=== PATIENT | female | born 1940 | race Caucasian/White ===

== ENCOUNTER 2016-11-18 12:33 | Observation (INO) ==
[2016-11-18] MEDS ORDERED: Aspirin 81 MG TAB.CHEW PO ONE (13:08)
--- NOTE | 2016-11-18 13:12 | Emergency Department Note ---
Disposition Clinical Impression: Chest pain Qualifiers: Chest pain type: unspecified Qualified Code(s): R07.9 - Chest pain, unspecified Gout Qualifiers: Gout site: unspecified site Gout etiology: unspecified cause Chronicity: acute Qualified Code(s): M10.9 - Gout, unspecified Disposition: Admitted As Inpatient Condition: Fair Referrals: Marcus Tompkins Jr, MD [Primary Care Provider] - Forms: ED Satisfaction Letter Time of Disposition: 14:43 General Adult HPI - General Chief complaint: ED Extremity Problem,Nontraumatic Stated complaint: knee pain(diag gout last week) Time Seen by Provider: 11/18/16 12:58 Source: patient Mode of arrival: wheelchair Limitations: no limitations Nursing Notes Reviewed: Yes Vital Signs Reviewed: Yes - History of Present Illness HPI Narrative: 75-year-old female who states she developed some ankle and foot pain on the right side last week was seen by her family doctor diagnosed with gout with elevated uric acid. The patient states she was placed on prednisone and allopurinol. States she's had increasing knee pain now and states that when she Carmen the bathroom she develops chest pain. 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 Radiation: non-radiation Pain Severity: moderate Pain Scale: 10 Quality: aching Consistency: constant Improves with: rest Worsens with: other (Exertion) - Related Data Home Medications Medication Instructions Recorded Confirmed Aspirin Enteric Coated [Aspirin EC] 81 mg PO DAILY 09/23/14 10/08/16 Carvedilol [Coreg] 6.25 mg PO BIDWM #0 09/23/14 10/08/16 Cholecalciferol (Vitamin D3) 50,000 unit PO QWEEK #0 09/23/14 10/08/16 [Vitamin D] Clopidogrel [Plavix] 75 mg PO DAILY 09/23/14 10/08/16 Cyanocobalamin (Vitamin B-12) 500 mcg PO DAILY #0 09/23/14 10/08/16 [Vitamin B-12] Furosemide [Lasix] 40 mg PO DAILY #0 09/23/14 10/08/16 Simvastatin [Zocor] 40 mg PO HS #0 09/23/14 10/08/16 Nitroglycerin [Nitrostat] 0.4 mg SL Q5-6MIN PRN 11/27/14 10/08/16 Insulin Aspart Prot/Insuln Asp 40 unit SQ BID 07/09/16 10/08/16 [Novolog Mix 70-30 Vial] Furosemide [Lasix] 20 mg PO HS 10/08/16 10/08/16 GlipiZIDE [Glipizide Xl] 5 mg PO DAILY 10/08/16 10/08/16 Allergies Allergy/AdvReac Type Severity Reaction Status Date / Time No Known Allergies Allergy Verified 09/23/14 19:55 All systems ED: reviewed and negative except as stated. Constitutional: Denies: fever, chills, weakness, weight change Eyes: Denies: eye pain, eye discharge, vision change ENT ED: Denies: ear pain, throat pain, dental pain, hearing loss, epistaxis, congestion, dysphagia Cardiovascular: Reports: chest pain. Denies: palpitations, dyspnea on exertion , edema, syncope Respiratory: Denies: cough, dyspnea, wheezes, hemoptysis, stridor Gastrointestinal: Denies: abdominal pain, nausea, vomiting, diarrhea, constipation, hematemesis, melena, hematochezia Genitourinary: Denies: dysuria, frequency, hematuria, discharge Musculoskeletal: Denies: back pain, neck pain, arthralgia, myalgia Integumentary: Denies: rash, abrasion, lesions Neurological: Denies: headache, weakness, numbness, paresthesias, confusion, abnormal gait, vertigo Psychiatric: Denies: anxiety, depression, suicidal thoughts, homicidal thoughts , auditory hallucinations, visual hallucinations Endocrine: Denies: fatigue Hematological/Lymphatic: Denies: easy bleeding, easy bruising Allergic/Immunologic: Denies: facial swelling, urticaria Past Medical History - Past Medical History Medical history: Reports: arthritis, CHF, coronary artery disease, diabetes, GERD, hyperlipidemia, hypertension, renal disease, other Surgical history: Reports: angioplasty/stent, appendectomy, cataract, hysterectomy, pacemaker/AICD, other, AICD, pacemaker Psychiatric history: Reports: no psych history - Social History Smoking Status: Never smoker Smokeless Tobacco Status: No Alcohol use: Reports: none Drug use: Reports: none Physical Exam - General Limitations: no limitations General appearance: alert, in no apparent distress - Head Head exam: atraumatic, normocephalic, normal inspection - Eye Eye exam: Present: normal appearance, PERRL, EOMI - ENT ENT exam: normal exam, normal oropharynx, mucous membranes moist - Neck Neck exam: Present: normal inspection, full ROM, trachea midline - Chest Chest inspection: Present: normal inspection, symmetric chest wall rise - Respiratory Respiratory exam: Present: normal lung sounds bilaterally - Cardiovascular Cardiovascular exam: Present: regular rate, normal rhythm, normal heart sounds - Abdominal Exam Abdominal exam: Present: soft, Non-Tender. Absent: tenderness, distention, guarding, rebound, rigidity - Expanded Lower Extremity Exam Knee exam: Present: tenderness. Absent: erythema Neurovascular/Tendon exam: Absent: motor deficit, sensory deficit, tendon deficit Gait: observed and normal - Back Exam Back exam: Present: normal inspection, full ROM. Absent: tenderness - Neurological Exam Neurological exam: Present: alert, oriented X3 - Psychiatric Psychiatric exam: Present: normal affect, normal mood - Skin Skin exam: Present: warm, dry, intact, normal color Course - Reevaluation(s) Reevaluation #1: 75-year-old who developed gout in her right ankle was treated now has right knee pain. Due to the pain patient exerts herself much more when ambulating and she develops chest pain with that. Patient will be admitted for the chest pain and also consultation with orthopedics. Time: 14:40 - Consultations Consultation #1: Discussed with Cirilo Dykes, admit. Time: 14:40 Vital Signs Temperature 97.3 F L 11/18/16 12:52 Pulse Rate 67 11/18/16 12:52 Respiratory Rate 20 11/18/16 12:52 Blood Pressure 105/64 11/18/16 12:52 O2 Sat by Pulse Oximetry 96 11/18/16 12:52 Temperature 97.3 F L 11/18/16 12:52 Pulse Rate 64 11/18/16 14:17 Respiratory Rate 14 11/18/16 14:17 Blood Pressure 112/55 11/18/16 14:17 O2 Sat by Pulse Oximetry 97 11/18/16 14:17 Oxygen Delivery Oxygen Delivery Room Air Medical Decision Making - Lab Data Result diagrams: 11/18/16 13:33 11/18/16 13:33 Lab Results 11/18/16 11/18/16 11/18/16 Range/Units 13:33 13:33 13:33 WBC 6.1 (4.3-11.1) K/mcL RBC 3.10 L (3.82-4.97) M/mcL Hgb 9.5 L (11.5-15.4) g/dL Hct 29.3 L (35.3-44.9) % MCV 94.5 (83.0-100.0) fL MCH 30.6 (28.0-33.3) pg MCHC 32.4 (31.6-35.5) g/dL RDW 14.6 H (11.5-14.5) % Plt Count 182 (140-400) K/mcL MPV 12.0 (9.4-12.4) fL Immature Gran % 0.3 (0-4) % Seg Neutrophils % 65.8 % Lymphocytes % 24.6 % Monocytes % 6.7 % Eosinophils % 2.3 % Basophils % 0.3 % Neutrophils # 4.0 (1.6-8.9) K/mcL Lymphocytes # 1.5 (0.6-4.6) K/mcL Monocytes # 0.4 (0.0-1.3) K/mcL Eosinophils # 0.1 (0.0-0.6) K/mcL Basophils # 0.0 (0.0-0.2) K/mcL PT 11.4 (9.4-12.1) Seconds INR 1.1 APTT 26.6 (26.0-36.0) Seconds Sodium 139 (136-145) mEq/L Potassium 3.8 (3.5-4.5) mEq/L Chloride 100 (98-109) mEq/L Carbon Dioxide 30 H (19-29) mEq/L BUN 37 H (7-20) mg/dL Creatinine 2.49 H (0.57-1.11) mg/dL Est GFR ( Amer) 23 L (> 60) Est GFR (Non-Af Amer) 19 L (> 60) BUN/Creatinine Ratio 15 (6-26) Glucose 68 L (70-99) mg/dL Calculated Osmolality 295 (280-300) Calcium 9.6 (8.6-10.8) mg/dL Troponin I (0-0.03) ng/mL 11/18/16 Range/Units 13:33 WBC (4.3-11.1) K/mcL RBC (3.82-4.97) M/mcL Hgb (11.5-15.4) g/dL Hct (35.3-44.9) % MCV (83.0-100.0) fL MCH (28.0-33.3) pg MCHC (31.6-35.5) g/dL RDW (11.5-14.5) % Plt Count (140-400) K/mcL MPV (9.4-12.4) fL Immature Gran % (0-4) % Seg Neutrophils % % Lymphocytes % % Monocytes % % Eosinophils % % Basophils % % Neutrophils # (1.6-8.9) K/mcL Lymphocytes # (0.6-4.6) K/mcL Monocytes # (0.0-1.3) K/mcL Eosinophils # (0.0-0.6) K/mcL Basophils # (0.0-0.2) K/mcL PT (9.4-12.1) Seconds INR APTT (26.0-36.0) Seconds Sodium (136-145) mEq/L Potassium (3.5-4.5) mEq/L Chloride (98-109) mEq/L Carbon Dioxide (19-29) mEq/L BUN (7-20) mg/dL Creatinine (0.57-1.11) mg/dL Est GFR ( Amer) (> 60) Est GFR (Non-Af Amer) (> 60) BUN/Creatinine Ratio (6-26) Glucose (70-99) mg/dL Calculated Osmolality (280-300) Calcium (8.6-10.8) mg/dL Troponin I 0.00 (0-0.03) ng/mL - Radiology Data Radiology results reviewed: Yes I reviewed the patient's radiology results. - EKG Data EKG #1 EKG attestation: Yes I reviewed and interpreted this EKG. EKG shows normal: sinus rhythm Rate: normal Rhythm: NSR Interpretation: no acute changes
[2016-11-18 13:50] LABS: Basophils % 0.3 %; Eosinophils # 0.1 K/mcL (0.0-0.6); Eosinophils % 2.3 %; Hematocrit 29.3 % (35.3-44.9); Hemoglobin 9.5 g/dL (11.5-15.4); Immature Granulocytes % 0.3 % (0-4); Lymphocytes # 1.5 K/mcL (0.6-4.6); Lymphocytes % 24.6 %; Mean Corpuscular HGB Conc 32.4 g/dL (31.6-35.5); Mean Corpuscular Hemoglobin 30.6 pg (28.0-33.3); Mean Corpuscular Volume 94.5 fL (83.0-100.0); Monocytes # 0.4 K/mcL (0.0-1.3); Monocytes % 6.7 %; Platelet Count 182 K/mcL (140-400); Red Cell Distribution Width 14.6 % (11.5-14.5); Segmented Neutrophils % 65.8 %
[2016-11-18 13:56] LABS: INR 1.1; Prothrombin Time 11.4 Seconds (9.4-12.1)
[2016-11-18 13:59] LABS: Activated Partial Thrombo Time 26.6 Seconds (26.0-36.0)
[2016-11-18 14:09] LABS: Calcium 9.6 mg/dL (8.6-10.8); Potassium 3.8 mEq/L (3.5-4.5)
[2016-11-18] MEDS ORDERED: Naloxone 0.4 MG/ML INJ IVP PRN (18:28)
[2016-11-18] MEDS ORDERED: Ondansetron 4 MG/2 ML VIAL IVP PRN (18:28)
[2016-11-18] MEDS ORDERED: Acetaminophen 325 MG TABLET PO PRN (18:28)
[2016-11-18] MEDS ORDERED: *HR* HYDROcodone/Acet 5/325 mg TABLET PO PRN (18:28)
[2016-11-18] MEDS ORDERED: Nitroglycerin 0.4 MG TAB.SUBL SL PRN (18:39)
--- NOTE | 2016-11-18 18:48 | Internal Med History&Physical ---
<Cirilo Dykes - Last Filed: 11/18/16 22:31> Date of Encounter: 11/18/16 Time of Encounter: 17:30 Assessment and Plan (1) Gout Current visit: Yes Status: Acute Patient presents with gout of right knee. She reports gout of right foot last week that was treated with allopurinol and predisone successfully. Uric acid ordered. Will continue allopurinol and prednisone PO. Stair-step pain medications consisting of Tylenol and Hydrocodone for pain management due to current GFR of 19. Qualifiers: Gout site: unspecified site Gout etiology: unspecified cause Chronicity: acute Qualified Code(s): M10.9 - Gout, unspecified (2) Chest pain Current visit: Yes Status: Acute Patient presents with chest pain under left breast after ambulating with walker and straining arms. Patient has hx of CAD and stent placement x1. EKG today shows supraventricular rhythm with marked left axis deviation and low QRS voltage in precordial leads. Possible anterior myocardial infarction, probably old. Initial troponin 0.00. Will trend x2. Echocardiogram ordered. Continuous cardiac telemetry. Will continue patient's aspirin therapy, HTN and HLD medications. Qualifiers: Chest pain type: other chest pain Qualified Code(s): R07.89 - Other chest pain; R07.8 - Other chest pain (3) Venous stasis Current visit: Yes Status: Chronic Hx of chronic venous stasis in bilateral LEs. Daily wound care and wound care consult ordered. medical educator consult ordered. Bilateral venous Dopplers of LEs ordered. (4) GERD (gastroesophageal reflux disease) Current visit: Yes Status: Chronic Hx of chronic GERD. IVP Protonix 40 mg daily. IVP Zofran Q6 PRN for nausea. Qualifiers: Esophagitis presence: esophagitis presence not specified Qualified Code(s) : K21.9 - Gastro-esophageal reflux disease without esophagitis (5) Diabetes Current visit: Yes Status: Chronic Hx of chronic diabetes with insulin dependency as well as oral anti- hyperglycemic medications. Will hold patient's glipizide and continue 40 units Lispro BID. Low-dose correction insulin sliding scale with hypoglycemic protocol. Blood glucose monitoring ACHS. A1c ordered in a.m. labs. Qualifiers: Diabetes mellitus type: type 2 Diabetes mellitus complication status: with neurologic complications Diabetes mellitus complication detail: with unspecified neuropathy Diabetes mellitus assisted insulin use: unspecified assisted insulin use status Qualified Code(s): E11.40 - Type 2 diabetes mellitus with diabetic neuropathy, unspecified (6) HLD (hyperlipidemia) Current visit: Yes Status: Chronic Hx of chronic HLD. Lipid panel ordered in a.m. labs. Continue Zocor. Qualifiers: Hyperlipidemia type: pure hypercholesterolemia Qualified Code(s): E78.00 - Pure hypercholesterolemia, unspecified; E78.0 - Pure hypercholesterolemia (7) HTN (hypertension) Current visit: Yes Status: Chronic Hx of chronic HTN. Continue Coreg, Imdur, and Valsartan. Monitor patient and VS. Qualifiers: Hypertension type: essential hypertension Qualified Code(s): I10 - Essential (primary) hypertension (8) CKD (chronic kidney disease) stage 4, GFR 15-29 ml/min Current visit: Yes Status: Chronic Hx of CKD stage 4. Will use IV fluids judiciously if necessary and avoid nephrotoxic agents. (9) CAD (coronary artery disease) Current visit: Yes Status: Chronic Hx of chronic CAD. Will continue patient's aspirin therapy, Coreg, Plavix, Imdur , Valsartan, and Zocor. Qualifiers: Coronary Disease-Associated Artery/Lesion type: [place] artery [place] vs. transplanted heart: [place] heart Associated angina: without angina Qualified Code(s): I25.10 - Atherosclerotic heart disease of [place] coronary artery without angina pectoris (10) Chronic anemia Current visit: Yes Status: Chronic Hx of chronic anemia. Patient's Hgb 9.5 and Hct 29.3 on admission today which is at patient's baseline for the past year. Iron panel ordered. Will hold patient's B-12 and add renal B-complex vitamin daily. Monitor H/H in follow-up labs. (11) DVT prophylaxis Current visit: Yes Status: Acute Heparin 5,000 units SQ Q8 ordered for DVT prophylaxis. Internal Medicine - H&P: HPI Chief complaint: Right knee pain Admitted From: Emergency Dept Plans for Post Hospital Care: Home History of present illness: Ms. Gonzalez is a 75 year old female with medical history of arthritis, CHF, CAD, diabetes, GERD, HLD, HTN, and CKD presents from the ED with chief complaint of right knee swelling and pain for the past several days. Patient states that she had right foot swelling and pain a week ago and was diagnosed with gout by her PCP and placed on allopurinol and prednisone PO which helped. She then developed pain and swelling in the right knee with erythema and warmth making ambulation difficult for her. Patient also states that she has had chest pain in the left breast which began after using her walker more than usual. Patient has hx of CAD, stent placement x1, and AICD. Patient reports pain in the right knee and chest discomfort in the left chest but denies recent illness, fever, chills, nausea, vomiting, headache, changes in vision, shortness of breath, palpitations, lightheadedness, diarrhea, constipation, unusual bleeding, presyncope, or syncope. Two-view x-ray today of the right knee shows diffuse edema without acute osseous abnormality of the right knee. Single view CXR today shows stable cardiomegaly, hyperinflated lungs, and right hemidiaphragm elevation. On admission, patient's vital signs included temperature of 90 7.3F, heart rate of 64 bpm, respiratory rate 14, BP of 112/55, and SPO2 97% on room air. Abnormal labs include RBC of 3.10, Hgb of 9.5, HCT of 29.3, CO2 30, BUN 37 , creatinine 2.49, GFR 19, and glucose of 68. Initial troponin 0.00. On assessment, patient is alert and oriented 3 and reports only pain in the right knee. Patient states she is not experiencing chest pain at this time. HR is RRR, lungs are clear bilaterally on auscultation, and patient has bilateral venous stasis with healing venous ulcers present and LEs. Patient is hemodynamically stable and reports only mild pain at this time. Ms. Gonzalez is at moderate risk for further morbidity based on current symptoms, history, and risk factors and will be placed as observation status. Time spent with patient > 40 minutes. Past Med Surg Social Fam HX - Past Medical History Source: patient, old records reviewed Medical history: arthritis, CHF, coronary artery disease, diabetes, GERD, hyperlipidemia, hypertension, renal disease, other Psychiatric history: no psych history - Past Surgical History Surgical History: angioplasty/stent, appendectomy, cataract, hysterectomy, pacemaker/AICD, other, AICD, pacemaker - Social History Smoking Status: Never smoker Smokeless Tobacco Status: No Alcohol use: none Drug use: none Current living situation: Home, With Family Activity Level: Uses cane/walker Recent Out of Country Travel Within the Last 8 Weeks: No Exposure or Possible Exposure to Illness During Travel: No - Family History Mother Race: Family Member Ethnicity: Non- Living Status: Age at : 65 Cause of : ND Hx Family Cardiac Disorders: Yes (CHF, ND, HTN) Hx Family Neurologic Disorders: Yes (STROKE) Sister Race: Family Member Ethnicity: Non- Living Status: Age at : 81 Cause of : Lung cancer Hx Family Cancer: Yes (Lung) Brother Race: Family Member Ethnicity: Non- Living Status: Age at : 49 Cause of : ND Hx Family Cardiac Disorders: Yes (ND, HTN) Hx Family Cancer: Yes (Bone cancer w/mets to brain) Father Race: Family Member Ethnicity: Non- Living Status: Age at : 72 Cause of : Leukemia Hx Family Cancer: Yes (Leukemia) Internal Medicine - H&P: Meds Aspirin Enteric Coated [Aspirin EC] 81 mg PO DAILY 09/23/14 [History] Carvedilol [Coreg] 6.25 mg PO BIDWM #0 09/23/14 [History] Cholecalciferol (Vitamin D3) [Vitamin D] 50,000 unit PO TH #0 09/23/14 [History] Clopidogrel [Plavix] 75 mg PO DAILY 09/23/14 [History] Cyanocobalamin (Vitamin B-12) [Vitamin B-12] 500 mcg PO DAILY #0 09/23/14 [ History] Furosemide [Lasix] 40 mg PO QAM #0 09/23/14 [History] Simvastatin [Zocor] 40 mg PO HS #0 09/23/14 [History] Nitroglycerin [Nitrostat] 0.4 mg SL Q5M PRN 11/27/14 [History] Furosemide [Lasix] 20 mg PO QPM 10/08/16 [History] Acetaminophen [Tylenol] 500 mg PO DAILY 11/18/16 [History] Allopurinol [Zyloprim 100 MG] 100 mg PO DAILY 11/18/16 [History] Citalopram Hydrobromide [Citalopram HBr] 20 mg PO DAILY 11/18/16 [History] Insulin Lispro Protamin/Lispro [Humalog Mix 75-25 Vial] 40 unit SQ BID 11/18/16 [History] Isosorbide MONOnitrate (24 HR) [Imdur] 30 mg PO DAILY 11/18/16 [History] Valsartan [Valsartan] 40 mg PO DAILY 11/18/16 [History] glipiZIDE [Glipizide] 10 mg PO DAILY 11/18/16 [History] 3 Allergy/AdvReac Type Severity Reaction Status Date / Time No Known Allergies Allergy Verified 09/23/14 19:55 All Systems PM: A 10-system review of systems was performed and is negative for pertinent findings except as documented above in the HPI. - Constitutional Constitutional: weakness (Bilateral legs), no chills, no fever(s), no night sweats - EENT Eyes: no change in vision, no discharge, no pain, no photophobia Ears: no ear discharge, no ear pain, no tinnitus Nose, mouth and throat: no dysphagia, no nasal discharge, no neck pain, no sore throat - Breasts Breasts: as per HPI - Cardiovascular Cardiovascular ROS IM: as per HPI, chest pain, no diaphoresis, no dyspnea, no lightheadedness, no palpitations, no syncope - Respiratory Respiratory: no cough, no dyspnea, no wheezing, no excessive phlegm production - Gastrointestinal Gastrointestinal: as per HPI, nausea - Genitourinary Genitourinary: no change in urinary stream, no dysuria, no flank pain, no hematuria Menstruation: post hysterectomy - Musculoskeletal Musculoskeletal ROS IM: as per HPI, arthralgias, no numbness, no tingling - Integumentary Integumentary IM: erythema, other (Bilateral venous stasis of LEs), no rash, no unusual bruising - Neurological Neurological ROS: no confusion, no convulsions, no focal weakness, no numbness, no tingling, no tremor(s) - Psychiatric Psychiatric: as per HPI - Endocrine Endocrine IM: as per HPI - Hematologic/Lymphatic Hematologic/Lymphatic: no easy bruising - Allergic/Immunologic Allergic/Immunologic: as per HPI - Constitutional Vitals: Temp Pulse Resp BP Pulse Ox 97.5 F L 60 16 134/66 96 11/18/16 16:59 11/18/16 16:59 11/18/16 16:59 11/18/16 16:59 11/18/16 16:59 General appearance: Present: cooperative, A&O X 3, morbidly obese, pleasant, no acute distress, answers questions appropriately - Head Head exam: Present: atraumatic, normocephalic - Eye Eye exam: Present: PERRL, conjuntiva pink, sclera anicteric Pupils: Present: PERRL - ENT ENT exam: Present: normal exam, normal external ear exam, normal oropharynx - Neck Neck exam general surgery: Present: normal inspection, supple, trachea midline. Absent: lymphadenopathy - Respiratory Respiratory exam: Present: CTAB. Absent: accessory muscle use, rales, rhonchi, wheezes - Cardiovascular Cardiovascular exam: Present: RRR, +S1, +S2. Absent: diastolic murmur, gallop, rubs, systolic murmur - GI/Abdominal GI/Abdominal exam: Present: normal bowel sounds, soft, no peritoneal signs. Absent: distended, tenderness - Rectal Rectal exam: Present: deferred - Additional comments: exam deferred. - Extremities Exam Extremities exam: Present: pedal edema, warm, radial pulses palpable and symmetrical Additional comments: Patient has bilateral venous stasis of LEs. Skin is erythematous and scabbing is presents from venous ulcers. - Back Exam Back exam: Present: normal inspection - Neurological Exam Neurological exam: Present: CN II-XII intact, oriented X3, no focal deficits. Absent: pronater drift, facial droop, speech deficit - Psychiatric Psychiatric exam: Present: normal affect, normal mood - Skin Skin exam: Present: erythema (Bilateral LEs) Internal Med - H&P Results - Labs CBC & Chem 7: 11/18/16 13:33 11/18/16 13:33 - EKG Data Prior EKG available for review: yes Interpretation IM: suggestive of ischemia EKG comments: 11/18/16 18:56 EKG dated 11/27/14 shows sinus bradycardia, left axis deviation and left bundle branch block. EKG dated 11/18/16 shows supraventricular rhythm with marked left axis deviation , low QRS voltage in precordial leads, and possible anterior myocardial infarction probably old. - Diagnostic Studies Chest x-ray Additional comments: Impressions Chest X-Ray 11/18/16 13:08 IMPRESSION: 1. Stable cardiomegaly. 2. Hypoinflated lungs. Right hemidiaphragm elevation. D/ / Marlen Melchor MD / Marlen Melchor MD Interpreting Provider: Marlen Melchor MD Other Images Additional comments: Impressions Knee X-Ray 11/18/16 14:26 IMPRESSION: Diffuse edema without acute osseous abnormality of the right knee D/ / Valdez Concepcion MD / Valdez Concepcion MD Interpreting Provider: Valdez Concepcion MD <[email or web address] - Last Filed: 11/19/16 06:38> Date of Encounter: 11/18/16 Internal Medicine - H&P: HPI History of present illness: Ms. Gonzalez is a 75 year old female All Systems PM: A 10-system review of systems was performed and is negative for pertinent findings except as documented above in the HPI. - Constitutional Vitals: Temp Pulse Resp BP Pulse Ox 97.9 F 62 18 142/60 94 11/19/16 03:49 11/19/16 03:49 11/19/16 03:49 11/19/16 03:49 11/19/16 03:49 Internal Med - H&P Results - Labs CBC & Chem 7: 11/19/16 01:05 11/19/16 01:05 Labs: Short CBC 11/19/16 Range/Units 01:05 WBC 5.7 (4.3-11.1) K/mcL Hgb 10.0 L (11.5-15.4) g/dL Hct 30.9 L (35.3-44.9) % Plt Count 182 (140-400) K/mcL Neutrophils # 3.3 (1.6-8.9) K/mcL BMP 11/19/16 01:05 Sodium 136 Potassium 4.2 Chloride 97 L Carbon Dioxide 29 BUN 36 H Creatinine 2.30 H Glucose 307 H Calcium 9.6 Cardiac Enzymes 11/18/16 11/19/16 Range/Units 19:03 01:05 Troponin I 0.00 0.02 (0-0.03) ng/mL Liver Function 11/19/16 Range/Units 01:05 Total Bilirubin 0.4 (0.2-1.2) mg/dL AST 13 (5-34) Units/L ALT 10 (0-55) Units/L Alkaline Phosphatase 69 (38-126) Units/L Albumin 2.9 L (3.5-5.0) g/dL - Attending Attestation I personally interviewed and examined this patient and my medical decision- making was reviewed with the Advanced Practice Nurse. I agree with the documented findings, disposition and treatment plan as described. Aidan Smith MD, MPH Hospitalist
[2016-11-18] MEDS: INSULIN LISPRO PROTAMIN SQ SCH (19:34)
[2016-11-18] MEDS: LISPRO SQ SCH (19:34)
[2016-11-18] MEDS: *HR* Heparin 5,000 UNIT/ML VIAL SQ SCH (21:45)
[2016-11-19] MEDS ORDERED: Dextrose Gel 15 GM PO PRN ×2 (00:54)
[2016-11-19] MEDS ORDERED: *HR* Dextrose 50 % in Water (Syg) 50 ML SYRINGE IVP PRN (00:54)
[2016-11-19] MEDS ORDERED: D5% in Water 1,000 ML IVC PRN (00:54)
[2016-11-19] MEDS ORDERED: Insulin LISPRO 300 UNITS/3 ML VIAL SQ SCH ×2 (01:00→17:19)
[2016-11-19] MEDS: Insulin LISPRO 300 UNITS/3 ML VIAL SQ SCH ×5 (01:03→22:07)
[2016-11-19 01:35] LABS: Basophils % 0.5 %; Eosinophils # 0.1 K/mcL (0.0-0.6); Eosinophils % 2.1 %; Hematocrit 30.9 % (35.3-44.9); Immature Granulocytes % 0.2 % (0-4); Lymphocytes # 1.9 K/mcL (0.6-4.6); Lymphocytes % 33.6 %; Mean Corpuscular HGB Conc 32.4 g/dL (31.6-35.5); Mean Corpuscular Hemoglobin 29.7 pg (28.0-33.3); Mean Corpuscular Volume 91.7 fL (83.0-100.0); Mean Platelet Volume 12.3 fL (9.4-12.4); Monocytes # 0.4 K/mcL (0.0-1.3); Monocytes % 6.7 %; Neutrophils # 3.3 K/mcL (1.6-8.9); Platelet Count 182 K/mcL (140-400); Red Blood Count 3.37 M/mcL (3.82-4.97); Red Cell Distribution Width 14.4 % (11.5-14.5); Segmented Neutrophils % 56.9 %
[2016-11-19 01:48] LABS: % Iron Saturation 21 % (15-50); Activated Partial Thrombo Time 26.8 Seconds (26.0-36.0); Iron 52 mcg/dL (50-170); Transferrin 178 mg/dL (180-382)
[2016-11-19 01:50] LABS: Albumin 2.9 g/dL (3.5-5.0); Albumin/Globulin Ratio 0.7 (1.1-2.2); Bilirubin,Total 0.4 mg/dL (0.2-1.2); Calcium 9.6 mg/dL (8.6-10.8); Globulin 4.1 g/dL (2.4-3.5); Magnesium 1.7 mg/dL (1.6-2.6); Potassium 4.2 mEq/L (3.5-4.5)
[2016-11-19] MEDS: *HR* Heparin 5,000 UNIT/ML VIAL SQ SCH ×3 (05:58→21:46)
[2016-11-19] MEDS ORDERED: Perflutren Lipid Microsphere 1.3 ML in 0.9 % Sodium Chloride 8.7 ML IVP ONE (07:16)
[2016-11-19] MEDS: Furosemide 20 MG TABLET PO SCH ×2 (08:45→17:54)
[2016-11-19] MEDS: Pantoprazole 40 MG VIAL IVP SCH (08:45)
[2016-11-19] MEDS: Aspirin Enteric Coated 81 MG Tablet PO SCH (08:45)
[2016-11-19] MEDS: LISPRO SQ SCH ×2 (08:46→22:08)
[2016-11-19] MEDS: Valsartan 80 MG TABLET PO SCH (08:46)
[2016-11-19] MEDS: INSULIN LISPRO PROTAMIN SQ SCH ×2 (08:46→22:08)
[2016-11-19] MEDS: Renal Vitamin 1 MG CAPSULE PO SCH (08:46)
[2016-11-19] MEDS: predniSONE 20 MG TABLET PO SCH ×2 (08:46→17:54)
[2016-11-19] MEDS: Isosorbide MONOnitrate (24 HR) 30 MG TAB.ER.24H PO SCH (08:46)
[2016-11-19] MEDS: Insulin DETEMIR 100 UNIT/ML X5UNITS SQ SCH (08:49)
[2016-11-19] MEDS ORDERED: Cyanocobalamin (B-12) 1,000 MCG TABLET PO SCH (09:00)
--- NOTE | 2016-11-19 09:28 | Orthopedic Consult Note ---
Date of Encounter: 11/19/16 Time of Encounter: 09:28 History of Present Illness Chief complaint: right knee pain HPI: Ms. Gonzalez is a 75 year old female presenting to [facility] with right knee pain. She presented to ED secondary to chest pain when using the restroom. She was seen by her PCP, Dr. Tompkins, for gout last week and treated with oral anti- inflammatories. NSAIDs avoided secondary to CKD stage IV. In discussion with patient she denies any injury, fall, or trauma to right knee in the past several weeks. She states she has not had a gout flare in many years though has had a history of gout for per patient most of her life. She states that she was using her upper body a lot to maneuver through her house secondary to her right knee pain and states her upper body is sore, especially with having to move her body around such as to use the restroom. She relates that she came to the ED because of these pains. She relates that she has seen a physician at [facility] in the past and a possible knee replacement was mentioned to her in the past however she declined secondary to her multiple medical comorbidities. She states since that last visit her conditions have "only worsened". She states she does not wish to have surgery at this time for her knee. XRAY RIGHT KNEE FINDINGS: There is diffuse soft tissue swelling evident. No evidence of fracture. No evidence of osteomyelitis. No evidence of joint effusion. There is a small subcentimeter rounded ossification closely associated with the suprapatellar bursa which may be a loose body or periarticular ossification. Advanced tricompartmental degenerative changes are present throughout the knee. XR/XR knee RT limited 1-2V IMPRESSION: Diffuse edema without acute osseous abnormality of the right knee D/ / Valdez Concepcion MD / Valdez Concepcion MD Interpreting Provider: Valdez Concepcion MD On exam, patient sitting in chair upright eating breakfast. She is alert and oriented x 3. Her right knee is edematous with erythema noted to lateral aspect of patella. She is exquisitely tender in this area. The knee is tense and tender to palpation of joint line. +Patella grind. Patient in too much pain for stability testing. Patient able to actively extend knee to appx 20 deg and flex to appx 120 deg. Passive extension to appx 10 deg. Strength decreased secondary to pain. Left knee with full AROM. She has weakened pulses to b/l lower extremities. Skin of b/l ankles and feet is scarred with peeling skin - patient relates she recently had an Unna boot on her right foot/ankle secondary to skin ulcer/blister. She is very tender in this area. Decreased sensation to light and deep touch of b/l lower extremities. In discussion with patient, she declines surgical intervention at this time. Patient to have medical stabilization and follow up outpatient for evaluation of her gouty arthritis and b/l lower extremity joint pains. We discussed injections of steroid vs visco supplementation to be considered and further discussed at her outpatient follow up with [facility] sports med physicians. Patient verbalized understanding and agreement at this time. Continue oral pain medication and anti-inflammatory medications per hospitalist. Patient would likely benefit from a rehabilitation program. Follow up outpatient with [facility] sports medicine. Thank you for this consultation. Past Med Surg Social Fam HX - Past Medical History Medical history: arthritis, CHF, coronary artery disease, diabetes, GERD, hyperlipidemia, hypertension, renal disease, other Psychiatric history: no psych history - Past Surgical History Surgical History: angioplasty/stent, appendectomy, cataract, hysterectomy, pacemaker/AICD, other, AICD, pacemaker - Social History Smoking Status: Never smoker Smokeless Tobacco Status: No Alcohol use: none Drug use: none - Family History Father Race: Family Member Ethnicity: Non- Living Status: Age at : 72 Cause of : Leukemia Hx Family Cancer: Yes (Leukemia) Mother Race: Family Member Ethnicity: Non- Living Status: Age at : 65 Cause of : HI Hx Family Cardiac Disorders: Yes (CHF, HI, HTN) Hx Family Neurologic Disorders: Yes (STROKE) Sister Race: Family Member Ethnicity: Non- Living Status: Age at : 81 Cause of : Lung cancer Hx Family Cancer: Yes (Lung) Brother Race: Family Member Ethnicity: Non- Living Status: Age at : 49 Cause of : HI Hx Family Cardiac Disorders: Yes (HI, HTN) Hx Family Cancer: Yes (Bone cancer w/mets to brain) Medications and Allergies Aspirin Enteric Coated [Aspirin EC] 81 mg PO DAILY 09/23/14 [History] Carvedilol [Coreg] 6.25 mg PO BIDWM #0 09/23/14 [History] Cholecalciferol (Vitamin D3) [Vitamin D] 50,000 unit PO TH #0 09/23/14 [History] Clopidogrel [Plavix] 75 mg PO DAILY 09/23/14 [History] Cyanocobalamin (Vitamin B-12) [Vitamin B-12] 500 mcg PO DAILY #0 09/23/14 [ History] Furosemide [Lasix] 40 mg PO QAM #0 09/23/14 [History] Simvastatin [Zocor] 40 mg PO HS #0 09/23/14 [History] Nitroglycerin [Nitrostat] 0.4 mg SL Q5M PRN 11/27/14 [History] Furosemide [Lasix] 20 mg PO QPM 10/08/16 [History] Acetaminophen [Tylenol] 500 mg PO DAILY 11/18/16 [History] Allopurinol [Zyloprim 100 MG] 100 mg PO DAILY 11/18/16 [History] Citalopram Hydrobromide [Citalopram HBr] 20 mg PO DAILY 11/18/16 [History] Insulin Lispro Protamin/Lispro [Humalog Mix 75-25 Vial] 40 unit SQ BID 11/18/16 [History] Isosorbide MONOnitrate (24 HR) [Imdur] 30 mg PO DAILY 11/18/16 [History] Valsartan [Valsartan] 40 mg PO DAILY 11/18/16 [History] glipiZIDE [Glipizide] 10 mg PO DAILY 11/18/16 [History] 3 Allergy/AdvReac Type Severity Reaction Status Date / Time No Known Allergies Allergy Verified 09/23/14 19:55 All Systems Reviewed: A 10-system review of systems was performed and is negative for pertinent findings except as documented above in the HPI. Physical Exam - Constitutional Vitals: Temp Pulse Resp BP Pulse Ox 98.3 F 60 15 147/71 94 11/19/16 08:37 11/19/16 08:37 11/19/16 08:37 11/19/16 08:37 11/19/16 08:37 Results - Labs Result Diagrams: 11/19/16 01:05 11/19/16 01:05 Labs: Abnormal lab results RBC 3.37 M/mcL (3.82-4.97) L 11/19/16 01:05 Hgb 10.0 g/dL (11.5-15.4) L 11/19/16 01:05 Hct 30.9 % (35.3-44.9) L 11/19/16 01:05 Chloride 97 mEq/L (98-109) L 11/19/16 01:05 BUN 36 mg/dL (7-20) H 11/19/16 01:05 Creatinine 2.30 mg/dL (0.57-1.11) H 11/19/16 01:05 Est GFR ( Amer) 25 (> 60) L 11/19/16 01:05 Est GFR (Non-Af Amer) 21 (> 60) L 11/19/16 01:05 Glucose 307 mg/dL (70-99) H 11/19/16 01:05 POC Glucose 254 (58-89) H 11/19/16 08:32 Calculated Osmolality 302 (280-300) H 11/19/16 01:05 Uric Acid 9.9 mg/dL (2.6-6.0) H 11/18/16 19:03 Transferrin 178 mg/dL (180-382) L 11/19/16 01:05 Albumin 2.9 g/dL (3.5-5.0) L 11/19/16 01:05 Globulin 4.1 g/dL (2.4-3.5) H 11/19/16 01:05 Albumin/Globulin Ratio 0.7 (1.1-2.2) L 11/19/16 01:05 Triglycerides 220 mg/dL (< 150) H 11/19/16 01:05 VLDL Cholesterol, Calc 44 mg/dL (< 31) H 11/19/16 01:05 HDL Cholesterol 27 mg/dL (40-59) L 11/19/16 01:05 Cholesterol/HDL Ratio 6.0 (0-4.9) H 11/19/16 01:05 H & H 11/19/16 Range/Units 01:05 Hgb 10.0 L (11.5-15.4) g/dL Hct 30.9 L (35.3-44.9) % All other labs normal. Consult Discharge Plan - Plan Referrals: Marcus Tompkins Jr, MD [Primary Care Provider] -
--- NOTE | 2016-11-19 10:33 | Internal Med Progress Note ---
Date of Encounter: 11/19/16 Time of Encounter: 08:37 - Assessment and plan (1) Gout Current Visit: Yes Status: Acute Assessment and plan: Vickie Abdullahi is a 75-year-old female with past medical history CAD, hypertension, diabetes, CKD, and osteoarthritis who presented to [facility] on 11/18/2016 with complaints of right knee and chest pain area to his placed in observation status for further workup and treatment. 1. Gout: per hx. Recently seen by PCP for gout of right foot and was treated with allopurinol and predisone. Now with severe right knee pain for 1 week prior to presentation. Right knee x-ray diffuse edema without acute abnormality. Uric acid 9.9. Pain significantly improved with restarting allopurinol and prednisone. Continue current treatment. Ortho consulted 2. CAD: per hx. S/p KAITLYNN 04/2014. Now with intermittent chest pain that occurs with straining upper body and arms. Serial troponins negative, EKG without acute ST changes. Echo pending. Cont home ASA, plavix, BB, statin 3. PAD: suspected. Bilateral lower extremities with diminished pedal pulses dependent rubor. Bilateral lower ext dopplers and ABIs pending 4. HTN: per hx. BP variable but controlled. Continue home BP medications. Monitor BP and titrate PRN 5. Diabetes: per hx. Hgb A1c 7.8% on 09/2016. Holding home oral hypoglycemics. SSI. Monitor blood sugar and titrate PRN 6. CKD: per hx. GFR and Cr at baseline. Avoid nephrotoxic agents as possible. Intimately monitor CMP 7. DVT prophylaxis: Heparin Qualifiers: Gout site: unspecified site Gout etiology: unspecified cause Chronicity: acute Qualified Code(s): M10.9 - Gout, unspecified (2) CAD (coronary artery disease) Current Visit: Yes Status: Chronic Qualifiers: Coronary Disease-Associated Artery/Lesion type: [place] artery [place] vs. transplanted heart: [place] heart Associated angina: without angina Qualified Code(s): I25.10 - Atherosclerotic heart disease of [place] coronary artery without angina pectoris (3) CKD (chronic kidney disease) stage 4, GFR 15-29 ml/min Current Visit: Yes Status: Chronic (4) Diabetes mellitus Current Visit: Yes Status: Chronic Qualifiers: Diabetes mellitus type: type 2 Diabetes mellitus complication status: with kidney complications Diabetes mellitus complication detail: with chronic kidney disease Diabetes mellitus care home insulin use: with care home use Chronic kidney disease stage: stage 4 (severe) Qualified Code(s): E11.22 - Type 2 diabetes mellitus with diabetic chronic kidney disease; N18.4 - Chronic kidney disease, stage 4 (severe); N18.4 - Chronic kidney disease, stage 4 ( severe); N18.4 - Chronic kidney disease, stage 4 (severe); N18.4 - Chronic kidney disease, stage 4 (severe); Z79.4 - long term care administrator (current) use of insulin; Z79.4 - [facility] (current) use of insulin; Z79.4 - [facility] (current) use of insulin; Z79.4 - long term care administrator (current) use of insulin (5) HTN (hypertension) Current Visit: Yes Status: Chronic Qualifiers: Hypertension type: essential hypertension Qualified Code(s): I10 - Essential (primary) hypertension (6) DVT prophylaxis Current Visit: Yes Status: Acute - Subjective Interval history: . Patient says she feels much better today, still with right knee pain but significantly improved. No more chest pain, patient reports severe right knee pain over the last week which led to decreased mobility and difficulty getting up from a sitting position. Patient reports having to use upper body more than usual and she thinks that is the cause of her chest pain. She does have intermittent shortness of breath that is worse with ambulation. - Constitutional Vitals: Temp Pulse Resp BP Pulse Ox 98.3 F 60 15 147/71 94 11/19/16 08:37 11/19/16 08:37 11/19/16 08:37 11/19/16 08:37 11/19/16 08:37 General appearance: Present: cooperative, A&O X 3, morbidly obese, pleasant, no acute distress, answers questions appropriately - Head Head exam: Present: atraumatic, normocephalic - Eye Eye exam: Present: PERRL, conjuntiva pink, sclera anicteric Pupils: Present: PERRL - Neck Neck exam general surgery: Present: supple, trachea midline. Absent: lymphadenopathy - Respiratory Respiratory exam: Present: CTAB. Absent: accessory muscle use, rales, rhonchi, wheezes - Cardiovascular Cardiovascular exam: Present: RRR, +S1, +S2. Absent: diastolic murmur, gallop, rubs, systolic murmur - GI/Abdominal GI/Abdominal exam: Present: normal bowel sounds, soft, no peritoneal signs. Absent: distended, tenderness - Extremities Exam Extremities exam: Present: joint swelling (Right knee), pedal edema (Bilateral lower extremity trace pitting edema), warm, radial pulses palpable and symmetrical. Absent: calf tenderness, cyanotic - Neurological Exam Neurological exam: Present: CN II-XII intact, oriented X3, no focal deficits. Absent: pronater drift, facial droop, speech deficit - Skin Skin exam: Present: dry, intact Internal Medicine: Result - Labs CBC & Chem 7: 11/19/16 01:05 11/19/16 01:05 Labs: Short CBC 11/19/16 Range/Units 01:05 WBC 5.7 (4.3-11.1) K/mcL Hgb 10.0 L (11.5-15.4) g/dL Hct 30.9 L (35.3-44.9) % Plt Count 182 (140-400) K/mcL Neutrophils # 3.3 (1.6-8.9) K/mcL BMP 11/19/16 01:05 Sodium 136 Potassium 4.2 Chloride 97 L Carbon Dioxide 29 BUN 36 H Creatinine 2.30 H Glucose 307 H Calcium 9.6 Cardiac Enzymes 11/18/16 11/19/16 Range/Units 19:03 01:05 Troponin I 0.00 0.02 (0-0.03) ng/mL Liver Function 11/19/16 Range/Units 01:05 Total Bilirubin 0.4 (0.2-1.2) mg/dL AST 13 (5-34) Units/L ALT 10 (0-55) Units/L Alkaline Phosphatase 69 (38-126) Units/L Albumin 2.9 L (3.5-5.0) g/dL - ABG Interpretation ABG results: PT/INR, D-dimer PT 11.0 Seconds (9.4-12.1) 11/19/16 01:05 Consult Discharge Plan - Plan Referrals: Marcus Tompkins Jr, MD [Primary Care Provider] - Bridgette Wright MD [Partnered Physician] - 01/30/17 1:45 pm Rico Wall MD [Partnered Physician] - 01/07/17 10:00 am Vidal Gandhi MD [Non-Partnered Physician] - 11/27/16 9:10 am
[2016-11-19 16:56] LABS: Hemoglobin A1C 7.5 %
--- NOTE | 2016-11-19 20:10 | Electrocardiograph Report ---
[address] [address] Test Date: 2016-11-18 Pat Name: Vickie Gonzalez Department: 102 Room: [facility] Gender: F Ruling Technician: Tmr : 1940 Requested By: Luc Samson Order Number: [id number] Reading MD: Ford Mack MD Measurements Intervals [place] Rate: 62 P: MT: 0 QRS: -42 QRSD: 102 T: 36 QT: 401 QTc: 407 Interpretive Statements SINUS RHYTHM MARKED LEFT AXIS DEVIATION BASELINE ARTIFACT LOW QRS VOLTAGE IN PRECORDIAL LEADS Poor R wave progression Electronically Signed On 11-19-2016 20:09:40 EDT by Ford Mack MD
--- NOTE | 2016-11-19 23:45 | Venous Imaging Report ---
LE Venous Duplex Patient Name:Vickie Gonzalez Order Number:[id number] Procedure Date:11/19/2016 Date:1940Age:75 yrs Gender:Female Location:[facility] Room #: 3NE22 Government Relations Analyst:Belkis Williamson Referring MD:Cirilo Dykes, MOLECULAR SPECTROSCOPIST Reading MD:Jerel Mathew MD , FACS Secondary Indications: Risk Factors Yes/No Hx of DVT No Hx of Chemotherapy No Anticoagulants No Impressions: Bilateral lower extremity: normal superficial and deep exam. Recommendations: After imaging the patient returned to their room. Findings Venous Duplex Results: Right: Venous imaging of the lower extremity reveals full patency and normal vessel compressibility of the right distal iliac, right common femoral, right superficial femoral, right popliteal, right posterior tibial, right peroneal and right great saphenous. Doppler signals in the evaluated veins were normal. Left: Venous imaging of the lower extremity reveals full patency and normal vessel compressibility of the left distal iliac, left common femoral, left superficial femoral, left popliteal, left posterior tibial, left peroneal, left great saphenous and left lesser saphenous. Doppler signals in the evaluated veins were normal. Lower Extremity Venous Duplex Side Vein Compress Spontaneous Flow Augment Diameter (cm) Depth (cm) Right Distal Iliac Normal Yes Phasic Yes Right Common Femoral Normal Yes Phasic Yes Right Superficial Femoral Normal Yes Phasic Yes Right Popliteal Normal Yes Phasic Yes Right Posterior Tibial Normal Yes Phasic Yes Right Peroneal Normal Yes Phasic Yes Right Great Saphenous Normal Yes Phasic Yes Left Distal Iliac Normal Yes Phasic Yes Left Common Femoral Normal Yes Phasic Yes Left Superficial Femoral Normal Yes Phasic Yes Left Popliteal Normal Yes Phasic Yes Left Posterior Tibial Normal Yes Phasic Yes Left Peroneal Normal Yes Phasic Yes Left Great Saphenous Normal Yes Phasic Yes Left Lesser Saphenous Normal Yes Phasic Yes Updated by Jerel Mathew MD, FACS on 11/19/2016 11:38:01 PM Jerel Mathew MD electronically signed on 11/19/2016 11:38:19 PM with status of Final
--- NOTE | 2016-11-20 00:45 | Arterial Study Report ---
LE Arterial Physiologic Study Patient Name:Vickie Gonzalez Order Number:[id number] Procedure Date:11/19/2016 Date:1940Age:75 yrs Gender:Female Lt BP:145 / mmHg Rt.BP:168 / mmHgHeart Rate: Location:[facility] Room #: 3NE22 Resources Representative:Aileen Hernandez RDCS Referring MD:Tahmina Bcaon, ASSOCIATE DRAFTER Reading MD:Jerel Mathew MD , FACS Primary Indications:Diminished bilateral pedal pulses Risk Factors Yes/No Hypertension Hypercholesterolemia Diabetes Impressions: 1) Bilateral lower extremities waveform demonstrates normal hemodynamics. 2) Bilateral Ankle Brachial Index is normal. 3) Overall Impression: Arterial hemodynamics are well maintained at rest. Recommendations: After imaging the patient returned to their room. Findings LE Arterial Physiologic Exam: PVR: Right: The PVR waveforms are normal in the right ankle. Left: The PVR waveforms are normal in the left ankle. Prior Study: No prior study available for comparison. Segmental Pressures Side Location Pressure Index Result Right Posterior Tibial 188 1.12 Normal Right Dorsalis Pedis 223 1.33 noncompressible Left Posterior Tibial 144 0.86 Normal Left Dorsalis Pedis 238 1.42 noncompressible Ankle Brachial Index Right Systolic Diastolic ALEXANDRA Brachial 168 1.33 Dorsalis Pedis 223 1.33 Posterior Tibial 188 1.12 Left Systolic Diastolic ALEXANDRA Brachial 145 1.42 Dorsalis Pedis 238 1.42 Posterior Tibial 144 0.86 Updated by Jerel Mathew MD, FACS on 11/20/2016 12:40:18 AM with Status of Final Jerel Mathew MD electronically signed on 11/20/2016 12:40:49 AM with status of Final
[2016-11-20 04:57] LABS: Hematocrit 27.1 % (35.3-44.9); Hemoglobin 9.3 g/dL (11.5-15.4); Mean Corpuscular HGB Conc 34.3 g/dL (31.6-35.5); Mean Corpuscular Hemoglobin 30.4 pg (28.0-33.3); Mean Corpuscular Volume 88.6 fL (83.0-100.0); Mean Platelet Volume 12.2 fL (9.4-12.4); Platelet Count 190 K/mcL (140-400); Red Blood Count 3.06 M/mcL (3.82-4.97); Red Cell Distribution Width 14.1 % (11.5-14.5)
[2016-11-20 05:15] LABS: Albumin 2.8 g/dL (3.5-5.0); Albumin/Globulin Ratio 0.7 (1.1-2.2); Bilirubin,Total 0.3 mg/dL (0.2-1.2); Calcium 9.4 mg/dL (8.6-10.8); Globulin 4.1 g/dL (2.4-3.5); Potassium 4.4 mEq/L (3.5-4.5); Total Protein 6.9 g/dL (6.0-8.3)
[2016-11-20] MEDS: *HR* Heparin 5,000 UNIT/ML VIAL SQ SCH ×3 (06:28→21:57)
[2016-11-20] MEDS: Pantoprazole 40 MG VIAL IVP SCH (09:17)
[2016-11-20] MEDS: Insulin LISPRO 300 UNITS/3 ML VIAL SQ SCH ×4 (09:17→21:58)
[2016-11-20] MEDS: Insulin DETEMIR 100 UNIT/ML X5UNITS SQ SCH (09:18)
--- NOTE | 2016-11-20 09:20 | Internal Med Progress Note ---
Date of Encounter: 11/20/16 Time of Encounter: 08:00 - Assessment and plan (1) Gout Current Visit: Yes Status: Acute Assessment and plan: Vickie Abdullahi is a 75-year-old female with past medical history CAD, hypertension, diabetes, CKD, and osteoarthritis who presented to [facility] [place] on 11/18/2016 with complaints of right knee and chest pain. She was found to be an acute gout flare and was placed in observation status for further workup and treatment. 1. Gout: per hx. Recently seen by PCP for gout to right foot; was treated with allopurinol and predisone at that time. Now with severe right knee pain for 1 week prior to presentation. Right knee x-ray diffuse edema without acute abnormality. Uric acid 9.9. Pain significantly improved with restarting prednisone. Evaluated by orthopedics who recommended continuing PO steroids for now and outpatient follow-up for evaluation of gouty arthritis with possible injections versus Visco supplementation. Hold on allopurinol until acute gout flare of right knee has resolved as patient was treated with allopurinol for gout to right foot and subsequently developed acute gout to right knee. Allopurinol dose will need to be really dosed and kidney function monitored. Continue prednisone, taper over 10 days. Will need to follow-up with [facility] outpatient. Defer initiation of allopurinol for prevention of recurrent gout to SNF physician once acute gout flare has resolved. Repeat uric acid level pending 2. CAD: per hx. S/p KAITLYNN 04/2014. Now with intermittent chest pain that occured with straining upper body and arms. Serial troponins negative, EKG without acute ST changes. 11/19/2016 Echo with normal EF. Chest pain resolved as right knee pain improved and patient was not using upper body strength as much. Chest pain likely musculoskeletal. Cont home ASA, plavix, BB, statin. Recommend outpatient follow-up with primary clinic clerk. 3. Venous stasis: bilateral lower extremities with diminished pedal pulses dependent rubor. Bilateral lower ext dopplers negative for DVTs. Bilateral lower extremity ABIs normal. Continue compression wraps PRN and leg elevation when out of bed. 4. HTN: per hx. BP variable but controlled. Continue home BP medications. Monitor BP and titrate PRN 5. Diabetes: per hx. Hgb A1c 7.8% on 09/2016. Holding home oral hypoglycemics. Blood sugars elevated secondary to steroids. SSI increased to high dose. Monitor blood sugar and titrate PRN 6. CKD: per hx. GFR and Cr at baseline. Avoid nephrotoxic agents as possible. Intimately monitor CMP. 7. Chronic systolic and diastolic dysfunction: per hx. TTE with EF 50-55% and with evidence of low normal systolic function and mild left diastolic dysfunction. With mild lower extremity edema on exam otherwise appears compensated. Continue home Lasix. 8. Severe obesity: BMI 40. Lifestyle modifications encouraged. 9. DVT prophylaxis: Heparin Qualifiers: Gout site: unspecified site Gout etiology: unspecified cause Chronicity: acute Qualified Code(s): M10.9 - Gout, unspecified (2) CAD (coronary artery disease) Current Visit: Yes Status: Chronic Qualifiers: Coronary Disease-Associated Artery/Lesion type: [place] artery [place] vs. transplanted heart: [place] heart Associated angina: without angina Qualified Code(s): I25.10 - Atherosclerotic heart disease of [place] coronary artery without angina pectoris (3) CKD (chronic kidney disease) stage 4, GFR 15-29 ml/min Current Visit: Yes Status: Chronic (4) Diabetes mellitus Current Visit: Yes Status: Chronic Qualifiers: Diabetes mellitus type: type 2 Diabetes mellitus complication status: with kidney complications Diabetes mellitus complication detail: with chronic kidney disease Diabetes mellitus senior care insulin use: with terminologist use Chronic kidney disease stage: stage 4 (severe) Qualified Code(s): E11.22 - Type 2 diabetes mellitus with diabetic chronic kidney disease; N18.4 - Chronic kidney disease, stage 4 (severe); N18.4 - Chronic kidney disease, stage 4 ( severe); N18.4 - Chronic kidney disease, stage 4 (severe); N18.4 - Chronic kidney disease, stage 4 (severe); Z79.4 - shelter (current) use of insulin; Z79.4 - shelter (current) use of insulin; 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 Patient says she feels much better today; she reports only minimal pain to right knee with ambulation. She appears significantly improved. She would actually like to go home versus SNF however therapy is still recommending inpatient therapy and patient is agreeable to go. She denies chest pain, no shortness of breath. - Constitutional Vitals: Temp Pulse Resp BP Pulse Ox 98.3 F 67 15 136/75 96 11/20/16 07:00 11/20/16 07:00 11/20/16 07:00 11/20/16 07:00 11/20/16 07:00 General appearance: Present: cooperative, A&O X 3, morbidly obese, pleasant, no acute distress, answers questions appropriately - Head Head exam: Present: atraumatic, normocephalic - Eye Eye exam: Present: PERRL, conjuntiva pink, sclera anicteric Pupils: Present: PERRL - Neck Neck exam general surgery: Present: supple, trachea midline. Absent: lymphadenopathy - Respiratory Respiratory exam: Present: CTAB. Absent: accessory muscle use, rales, rhonchi, wheezes - Cardiovascular Cardiovascular exam: Present: RRR, +S1, +S2. Absent: diastolic murmur, gallop, rubs, systolic murmur - GI/Abdominal GI/Abdominal exam: Present: normal bowel sounds, soft, no peritoneal signs. Absent: distended, tenderness - Extremities Exam Extremities exam: Present: pedal edema, warm, radial pulses palpable and symmetrical. Absent: calf tenderness, cyanotic Additional comments: Slight lower extremity edema. Bilateral legs wrapped with compression wrap. Right knee with mild edema and slight tenderness to palpation. No erythema or diffuse edema noted - Neurological Exam Neurological exam: Present: CN II-XII intact, oriented X3, no focal deficits. Absent: pronater drift, facial droop, speech deficit - Skin Skin exam: Present: dry, intact Internal Medicine: Result - Labs CBC & Chem 7: 11/20/16 04:49 11/20/16 04:49 Labs: Short CBC 11/20/16 Range/Units 04:49 WBC 6.6 (4.3-11.1) K/mcL Hgb 9.3 L (11.5-15.4) g/dL Hct 27.1 L (35.3-44.9) % Plt Count 190 (140-400) K/mcL BMP 11/20/16 04:49 Sodium 133 L Potassium 4.4 Chloride 98 Carbon Dioxide 25 BUN 37 H Creatinine 2.21 H Glucose 330 H Calcium 9.4 Liver Function 11/20/16 Range/Units 04:49 Total Bilirubin 0.3 (0.2-1.2) mg/dL AST 14 (5-34) Units/L ALT 9 (0-55) Units/L Alkaline Phosphatase 65 (38-126) Units/L Albumin 2.8 L (3.5-5.0) g/dL - ABG Interpretation ABG results: PT/INR, D-dimer PT 11.0 Seconds (9.4-12.1) 11/19/16 01:05 - Impressions Impressions Echocardiogram 11/19/16 18:43 Impressions: Technically sub-optimal due to poor echocardiographic windows. Echo contrast was used. Low-normal LV systolic function, LVEF 50-55%. Atypical septal motion is noted. Mild concentric left ventricular hypertrophy. Mild left ventricular diastolic dysfunction. Normal right ventricular size and function. A device lead was visualized in the right atrium and right ventricle. No significant valvular dysfunction. Unable to estimate RVSP due to lack of TR jet. Left Ventricular Wall Motion: Rest Echo Findings All wall segments showed normal motion. Findings: Study Quality * Technically sub-optimal due to poor echocardiographic windows. Echo contrast was used. ECG Findings * Sinus rhythm. Intermittent v-pacing is noted. Left Ventricle * Low-normal LV systolic function, LVEF 50-55%. Atypical septal motion is noted. * Normal LV chamber size. * Mild concentric left ventricular hypertrophy. * Mild left ventricular diastolic dysfunction. Right Ventricle * Normal right ventricular size and function. Device lead * A device lead was visualized in the right atrium and right ventricle. Left Atrium * Normal left atrial size. Right Atrium * Normal right atrial size. Aorta * Normally sized aortic root. Pericardium * There is no pericardial effusion present. IVC * The IVC is not dilated. Aortic Valve * Trileaflet aortic valve. * Moderately sclerotic aortic valve leaflets. * No aortic stenosis. * Trace aortic regurgitation. Mitral Valve * Mildly calcified mitral valve leaflets. * Moderate mitral annular calcification * No mitral stenosis. * Trace mitral regurgitation. Tricuspid Valve * Tricuspid valve not well visualized. * No tricuspid stenosis. * Trace tricuspid regurgitation. * Unable to estimate RVSP due to lack of TR jet. Pulmonic Valve * Pulmonic valve not well visualized. * No pulmonic stenosis. * No pulmonic regurgitation. Consult Discharge Plan - Plan Referrals: Marcus Tompkins Jr, MD [Primary Care Provider] - Bridgette Wright MD [Partnered Physician] - 01/30/17 1:45 pm Rico Wall MD [Partnered Physician] - 01/07/17 10:00 am Vidal Gandhi MD [Non-Partnered Physician] - 11/27/16 9:10 am
[2016-11-20] MEDS: Isosorbide MONOnitrate (24 HR) 30 MG TAB.ER.24H PO SCH (09:24)
[2016-11-20] MEDS: Furosemide 20 MG TABLET PO SCH ×2 (09:25→17:36)
[2016-11-20] MEDS: Aspirin Enteric Coated 81 MG Tablet PO SCH (09:25)
[2016-11-20] MEDS: Valsartan 80 MG TABLET PO SCH (09:26)
[2016-11-20] MEDS: Renal Vitamin 1 MG CAPSULE PO SCH (09:28)
[2016-11-20] MEDS: predniSONE 20 MG TABLET PO SCH ×2 (09:31→17:36)
[2016-11-20 09:32] LABS: Uric Acid 9.4 mg/dL (2.6-6.0)
[2016-11-20] MEDS: INSULIN LISPRO PROTAMIN SQ SCH (21:56)
[2016-11-20] MEDS: LISPRO SQ SCH (21:56)
[2016-11-21] MEDS: *HR* Heparin 5,000 UNIT/ML VIAL SQ SCH ×2 (07:00→15:06)
[2016-11-21 07:41] LABS: Hematocrit 26.8 % (35.3-44.9); Hemoglobin 9.1 g/dL (11.5-15.4); Mean Corpuscular Volume 91.2 fL (83.0-100.0); Mean Platelet Volume 12.9 fL (9.4-12.4); Platelet Count 199 K/mcL (140-400); Red Blood Count 2.94 M/mcL (3.82-4.97)
[2016-11-21 07:57] LABS: Albumin 2.9 g/dL (3.5-5.0); Albumin/Globulin Ratio 0.7 (1.1-2.2); Bilirubin,Total 0.2 mg/dL (0.2-1.2); Calcium 9.3 mg/dL (8.6-10.8); Globulin 3.9 g/dL (2.4-3.5); Potassium 4.7 mEq/L (3.5-4.5); Total Protein 6.8 g/dL (6.0-8.3)
[2016-11-21] MEDS: INSULIN LISPRO PROTAMIN SQ SCH (08:17)
[2016-11-21] MEDS: LISPRO SQ SCH (08:17)
[2016-11-21] MEDS: Renal Vitamin 1 MG CAPSULE PO SCH (08:22)
[2016-11-21] MEDS: Valsartan 80 MG TABLET PO SCH (08:22)
[2016-11-21] MEDS: Pantoprazole 40 MG VIAL IVP SCH (08:23)
[2016-11-21] MEDS: Furosemide 20 MG TABLET PO SCH (08:23)
[2016-11-21] MEDS: Isosorbide MONOnitrate (24 HR) 30 MG TAB.ER.24H PO SCH (08:23)
[2016-11-21] MEDS: Aspirin Enteric Coated 81 MG Tablet PO SCH (08:23)
[2016-11-21] MEDS: Insulin LISPRO 300 UNITS/3 ML VIAL SQ SCH ×2 (08:23→12:18)
[2016-11-21] MEDS ORDERED: predniSONE 10 MG TABLET PO SCH (09:00)
[2016-11-21] MEDS: Insulin DETEMIR 100 UNIT/ML X5UNITS SQ SCH (12:18)
[2016-11-21 12:21] VITALS: BP 130/72
--- NOTE | 2016-11-21 13:56 | Discharge Summary ---
Date of Encounter: 11/21/16 Time of Encounter: 12:00 - Discharge Diagnosis (1) DVT prophylaxis Priority: Secondary Status: Acute (2) CAD (coronary artery disease) Priority: Secondary Status: Chronic Qualifiers: Coronary Disease-Associated Artery/Lesion type: [place] artery [place] vs. transplanted heart: [place] heart Associated angina: without angina Qualified Code(s): I25.10 - Atherosclerotic heart disease of [place] coronary artery without angina pectoris (3) Gout Priority: Primary Status: Acute Qualifiers: Gout site: knee Gout etiology: idiopathic Chronicity: acute Laterality : right Qualified Code(s): M10.061 - Idiopathic gout, right knee (4) CKD (chronic kidney disease) stage 4, GFR 15-29 ml/min Priority: Secondary Status: Chronic (5) Chest pain Priority: Primary Status: Resolved Qualifiers: Chest pain type: intercostal pain Qualified Code(s): R07.82 - Intercostal pain (6) Diabetes mellitus Priority: Secondary Status: Chronic Qualifiers: Diabetes mellitus type: type 2 Diabetes mellitus complication status: with kidney complications Diabetes mellitus complication detail: with chronic kidney disease Diabetes mellitus custodial insulin use: with custodial use Chronic kidney disease stage: stage 4 (severe) Qualified Code(s): E11.22 - Type 2 diabetes mellitus with diabetic chronic kidney disease; N18.4 - Chronic kidney disease, stage 4 (severe); N18.4 - Chronic kidney disease, stage 4 ( severe); N18.4 - Chronic kidney disease, stage 4 (severe); N18.4 - Chronic kidney disease, stage 4 (severe); Z79.4 - adjunct faculty 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 medical 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 (current) use of insulin; Z79.4 - assisted (current) use of insulin; Z79.4 - adjunct faculty for medical terminology (current) use of insulin; Z79.4 - adjunct faculty for medical terminology (current) use of insulin - Discharge Medications Prescriptions: predniSONE [PredniSONE] See Taper PO DAILY #20 tablet Home Medications: Aspirin Enteric Coated [Aspirin EC] 81 mg PO DAILY 09/23/14 [History] Carvedilol [Coreg] 6.25 mg PO BIDWM #0 09/23/14 [History] Cholecalciferol (Vitamin D3) [Vitamin D3] 50,000 unit PO TH #0 09/23/14 [History ] Clopidogrel [Plavix] 75 mg PO DAILY 09/23/14 [History] Cyanocobalamin (Vitamin B-12) [Vitamin B-12] 500 mcg PO DAILY #0 09/23/14 [ History] Furosemide [Lasix] 40 mg PO QAM #0 09/23/14 [History] Simvastatin [Zocor] 40 mg PO HS #0 09/23/14 [History] Nitroglycerin [Nitrostat] 0.4 mg SL Q5M PRN 11/27/14 [History] Furosemide [Lasix] 20 mg PO QPM 10/08/16 [History] Acetaminophen [Tylenol] 500 mg PO DAILY 11/18/16 [History] Allopurinol [Zyloprim 100 MG] 100 mg PO DAILY 11/18/16 [History] Citalopram Hydrobromide [Citalopram HBr] 20 mg PO DAILY 11/18/16 [History] Insulin Lispro Protamin/Lispro [Humalog Mix 75-25 Vial] 40 unit SQ BID 11/18/16 [History] Isosorbide MONOnitrate (24 HR) [Imdur] 30 mg PO DAILY 11/18/16 [History] Valsartan 40 mg PO DAILY 11/18/16 [History] glipiZIDE [Glipizide] 10 mg PO DAILY 11/18/16 [History] predniSONE [PredniSONE] See Taper PO DAILY #20 tablet 11/21/16 [Rx] Allergies/Adverse Reactions: 3 Allergy/AdvReac Type Severity Reaction Status Date / Time No Known Allergies Allergy Verified 09/23/14 19:55 Procedures/tests Complete & Pending: Procedures Performed prior 72 hours Category Date Time Status ALEXANDRA [EV ankle brachial index] Routine Y 11/19/16 10:39 Completed EV echocardiogram w enhance Routine Y 11/19/16 18:43 Completed EV venous imaging LE BI Routine Y 11/19/16 18:44 Completed - Notes to Outpatient Provider Patient was placed on taper down steroids with prednisone 30 mg daily 3, 20 mg daily 3, and then 10 mg daily 3. Patient was educated to check her sugar level closely (ACHS 4 times a day), patient said she knows to adjust her insulin dose if sugar is high. Date of admission: 11/18/16 15:08 Primary care physician: Marcus Tompkins Jr, MD Consults: 11/18/16 18:34 Consult to Physical Therapy [CONS] Routine Comment: Evaluate, develop and implement POC Reason for Consult: Patient has difficulty with ambulation d/t right knee pain as well as venous stasis. Please assess for stability, strength, ambulation, and assistive needs for post-discharge planning. 11/18/16 18:36 Consult to Occupational Therapy [CONS] Routine Comment: Evaluate, develop and implement POC Reason for Consult: Patient has difficulty with ambulation d/t right knee pain as well as venous stasis. Please assess for stability, strength, ambulation, and assistive needs for post-discharge planning. 11/18/16 19:59 Consult to Continuous Vulcanizing Machine Operator [CONS] Routine Comment: Reason for Consult: Patient has chronic diabetes with neuropathy and venous stasis of LEs. Please provide education regarding diet and wound/skin care. 11/18/16 20:00 Consult to Wound Care [CONS] Routine Reason for Consult: Patient has chronic venous stasis of LEs with some venous ulcers and scabbing present. Call Completed: No 11/19/16 10:55 Consult to Glue Machine Operator [CONS] Routine Reason for SW Consult: discharge to ECF Discharging clinician: Ashley Miles Anticipated date of discharge: 11/21/16 - Patient Status Disposition: Home Health Service Condition: Fair Functional capacity at discharge: uses cane/walker Overall status at discharge: patient is back to baseline - Discharge Instructions Follow Up With: Marcus Tompkins Jr, MD [Primary Care Provider] - Bridgette Wright MD [Partnered Physician] - 01/30/17 1:45 pm Rico Wall MD [Partnered Physician] - 01/07/17 10:00 am Vidal Gandhi MD [Non-Partnered Physician] - 11/27/16 9:10 am - Diet and Activity Activity: as per physical therapy Diet: diabetic diet, low salt diet Hospital course: Ms. Gonzalez is a 75 year old female admitted for right knee pain. Patient has history of gout, consider gout flare. Orthopedic consult was called and saw patient. Recommend anti-inflammatory treatment. Patient was placed on prednisone and after treatment her symptoms has significantly improved. Patient can walk with a walker right now. Patient also has chest pain initially , 3 sets of troponin negative, chest x-ray and EKG unremarkable, Echo result unremarkable. PTOT evaluation initially recommend ECF discharge but later recommend home health with home PTOT as patient's symptoms has improved. We will discharge patient home today with tapered down prednisone, home health, home PT and OT I saw and examined the patient today. The patient is awake alert, oriented 3. Stated the pain has resolved. No knee joint swelling. Her vitals are stable. We will discharge patient home with home health and home PTOT, closely follow up with PCP as outpatient. - Time Spent with Patient Total time spent providing and/or coordinating discharge services: 40 minutes Greater than 30 minutes - Constitutional Vitals: Temp Pulse Resp BP Pulse Ox 98.2 F 63 16 130/72 97 11/21/16 12:21 11/21/16 12:21 11/21/16 12:21 11/21/16 12:21 11/21/16 12:21 General appearance: Present: cooperative, A&O X 3, morbidly obese, pleasant, no acute distress, answers questions appropriately - Head Head exam: Present: atraumatic, normocephalic - Eye Eye exam: Present: PERRL, conjuntiva pink, sclera anicteric Pupils: Present: PERRL - Neck Neck exam general surgery: Present: supple, trachea midline. Absent: lymphadenopathy - Respiratory Respiratory exam: Present: CTAB. Absent: accessory muscle use, rales, rhonchi, wheezes - Cardiovascular Cardiovascular exam: Present: RRR, +S1, +S2. Absent: diastolic murmur, gallop, rubs, systolic murmur - GI/Abdominal GI/Abdominal exam: Present: normal bowel sounds, soft, no peritoneal signs. Absent: distended, tenderness - Extremities Exam Extremities exam: Present: warm, radial pulses palpable and symmetrical. Absent : calf tenderness, cyanotic, pedal edema - Neurological Exam Neurological exam: Present: CN II-XII intact, oriented X3, no focal deficits. Absent: pronater drift, facial droop, speech deficit - Skin Skin exam: Present: dry, intact
--- NOTE | 2016-11-21 14:11 | Physician Discharge Referral ---
Home Health/Hosp Referral Info Transfer to: Home Health Provider in Charge Post Discharge: PCP - Diagnosis (1) DVT prophylaxis Status: Acute (2) CAD (coronary artery disease) Status: Chronic (3) Gout Status: Acute (4) CKD (chronic kidney disease) stage 4, GFR 15-29 ml/min Status: Chronic (5) Chest pain Status: Resolved (6) Diabetes mellitus Status: Chronic - Respiratory Orders Smoking Cessation: Smoking cessation has been advised. For more information, call the [place] Tobacco Quit Line at 1-068-RNBT-NOW. - Diet/Nutrition Diet/Nutrition Orders: Cardiac, No Concentrated Sweets - Services Needed Following services are medically necessary services: Nursing, Home Health Aide, Physical Therapy, Occupational Therapy - Transfer Medications Prescriptions: predniSONE [PredniSONE] See Taper PO DAILY #20 tablet Home Medications: Aspirin Enteric Coated [Aspirin EC] 81 mg PO DAILY 09/23/14 [History] Carvedilol [Coreg] 6.25 mg PO BIDWM #0 09/23/14 [History] Cholecalciferol (Vitamin D3) [Vitamin D3] 50,000 unit PO TH #0 09/23/14 [History ] Clopidogrel [Plavix] 75 mg PO DAILY 09/23/14 [History] Cyanocobalamin (Vitamin B-12) [Vitamin B-12] 500 mcg PO DAILY #0 09/23/14 [ History] Furosemide [Lasix] 40 mg PO QAM #0 09/23/14 [History] Simvastatin [Zocor] 40 mg PO HS #0 09/23/14 [History] Nitroglycerin [Nitrostat] 0.4 mg SL Q5M PRN 11/27/14 [History] Furosemide [Lasix] 20 mg PO QPM 10/08/16 [History] Acetaminophen [Tylenol] 500 mg PO DAILY 11/18/16 [History] Allopurinol [Zyloprim 100 MG] 100 mg PO DAILY 11/18/16 [History] Citalopram Hydrobromide [Citalopram HBr] 20 mg PO DAILY 11/18/16 [History] Insulin Lispro Protamin/Lispro [Humalog Mix 75-25 Vial] 40 unit SQ BID 11/18/16 [History] Isosorbide MONOnitrate (24 HR) [Imdur] 30 mg PO DAILY 11/18/16 [History] Valsartan 40 mg PO DAILY 11/18/16 [History] glipiZIDE [Glipizide] 10 mg PO DAILY 11/18/16 [History] predniSONE [PredniSONE] See Taper PO DAILY #20 tablet 11/21/16 [Rx] Allergies/Adverse Reactions: 3 Allergy/AdvReac Type Severity Reaction Status Date / Time No Known Allergies Allergy Verified 09/23/14 19:55 Certification: Further, I certify that my clinical findings support that this patient is homebound (i.e. absences from home require considerable and taxing effort and are for medical reasons or gnosticist services or infrequently or short duration when for other reasons) because: Homebound Reason: Patient requires assistance of a person or device to safely leave home Attestation: My signature below is to certify that this patient is under my care and that I, or nurse practitioner, or a physician's family and divorce legal assistant working with me, has a face-to -face encounter with this patient.
[2016-11-24] MEDS ORDERED: predniSONE 20 MG TABLET PO SCH (09:00)
[2016-11-25] MEDS ORDERED: predniSONE 20 MG TABLET PO SCH (09:00)
[2016-11-27] MEDS ORDERED: predniSONE 10 MG TABLET PO SCH (09:00)
== END 2016-11-21 15:30 | disposition home health service (06) ==
LOC: 3NENU 12:33 → EMEROO 12:33 → 3NENU 16:14
PROVIDERS: ADMIT Nurse Practitioner Family; ATTEND Internal Medicine

== ENCOUNTER 2019-05-01 11:37 | Inpatient (IN) ==
[2019-05-01] MEDS ORDERED: Amiodarone Premix 150 MG/100 ML BAG IVPB ONE (12:08)
[2019-05-01 12:19] LABS: Basophils % 0.5 %; Eosinophils # 0.2 K/mcL (0.0-0.6); Eosinophils % 2.7 %; Hematocrit 32.3 % (35.3-44.9); Hemoglobin 10.6 g/dL (11.5-15.4); Immature Granulocytes % 0.2 % (0-4); Lymphocytes # 2.1 K/mcL (0.6-4.6); Lymphocytes % 32.8 %; Mean Corpuscular HGB Conc 32.8 g/dL (31.6-35.5); Mean Corpuscular Hemoglobin 31.5 pg (28.0-33.3); Mean Corpuscular Volume 95.8 fL (83.0-100.0); Mean Platelet Volume 12.5 fL (9.4-12.4); Monocytes # 0.5 K/mcL (0.0-1.3); Monocytes % 7.1 %; Neutrophils # 3.6 K/mcL (1.6-8.9); Platelet Count 165 K/mcL (140-400); Red Blood Count 3.37 M/mcL (3.82-4.97); Red Cell Distribution Width 13.4 % (11.5-14.5); Segmented Neutrophils % 56.7 %; White Blood Count 6.4 K/mcL (4.3-11.1)
[2019-05-01 12:39] LABS: Calcium 10.6 mg/dL (8.6-10.3); Potassium 2.5 mEq/L (3.5-5.1); Troponin I 0.48 ng/mL (< 0.04)
[2019-05-01] MEDS ORDERED: Potassium Chloride 40 MEQ, Lidocaine 1% 2 ML in 0.9 % Sodium Chloride 500 ML IVPB ONE ×3 (12:42→17:10)
[2019-05-01] MEDS ORDERED: Amiodarone Premix 360 MG/200 ML BAG IVC ONE (13:00)
[2019-05-01 13:11] LABS: Magnesium 1.9 mg/dL (1.6-2.6)
[2019-05-01] MEDS ORDERED: Naloxone 0.4 MG/ML INJ IVP PRN (13:59)
[2019-05-01] MEDS ORDERED: 0.9 % Sodium Chloride 1,000 ML IVC SCH (14:00)
[2019-05-01] MEDS ORDERED: Dextrose Gel 15 GM/37.5 ML TUBE PO PRN ×2 (14:06)
[2019-05-01] MEDS ORDERED: D5% in Water 1,000 ML IVC PRN (14:06)
[2019-05-01] MEDS ORDERED: *HR* Dextrose 50 % in Water (Syg) 50 ML SYRINGE IVP PRN (14:06)
[2019-05-01] MEDS ORDERED: *HR* Amiodarone Premix 360 MG/200 ML BAG IVC ONE (14:27)
[2019-05-01] MEDS ORDERED: *HR* Magnesium Sulfate 2 GM/50 ML PIGGYBACK IVPB ONE (14:27)
[2019-05-01] MEDS ORDERED: *HR* Amiodarone 150 MG/3 ML VIAL IVPB ONE (14:27)
[2019-05-01 15:52] LABS: ABG Base Excess 6 mEq/L (-2 to 3); ABG HCO3 30 mEq/L (21-27); ABG Oxygen Saturation 99 % (95-98); ABG PCO2 41 mmHg (35-45); ABG PH 7.47 pH Units (7.32-7.45); ABG PO2 124 mmHg (85-104); ABG TCO2 31 mEq/L (20-26)
[2019-05-01 16:00] LABS: Bilirubin,Urine Negative (Negative); Blood,Urine Negative (Negative); Clarity,Urine Clear (Clear); Color,Urine Yellow (Yellow); Glucose,Urine (UA) 100 mg/dL (Normal); Ketones,Urine Trace mg/dL (Negative); Leukocyte Esterase,Urine Negative (Negative); Nitrite,Urine Negative (Negative); Protein,Urine 100 mg/dL (Neg-Trace); Specific Gravity,Urine 1.017 (1.010-1.025); Urobilinogen,Urine Normal (Normal)
[2019-05-01 16:05] LABS: Bacteria,Urine None Seen per hpf (None-Few); Hyaline Casts,Urine None Seen per lpf (None-Few); Squamous Epithelial Cell,Urine Many per lpf (None-Few); WBC,Urine 0-3 per hpf (0-3)
[2019-05-01] MEDS ORDERED: Lidocaine -MPF 2% 5 ML VIAL INFILT ONE (16:22)
[2019-05-01] MEDS: *HR* Heparin 5,000 UNIT/ML VIAL SQ SCH (17:26)
[2019-05-01] MEDS: Insulin LISPRO 300 UNITS/3 ML VIAL SQ SCH (17:26)
[2019-05-01] MEDS ORDERED: Nitroglycerin 0.4 MG TAB.SUBL SL PRN (18:21)
[2019-05-01] MEDS ORDERED: Bisacodyl 10 MG RECTAL SUPPOSITORY RC PRN (18:35)
[2019-05-01] MEDS: Amiodarone Premix 360 MG/200 ML BAG IVC SCH (18:41)
[2019-05-01 18:55] LABS: Calcium 9.4 mg/dL (8.6-10.3); Magnesium 2.6 mg/dL (1.6-2.6); Potassium 3.4 mEq/L (3.5-5.1); Troponin I 0.76 ng/mL (< 0.04)
[2019-05-01 19:01] LABS: ABG Base Excess 6 mEq/L (-2 to 3); ABG HCO3 29 mEq/L (21-27); ABG Oxygen Saturation 98 % (95-98); ABG PCO2 34 mmHg (35-45); ABG PH 7.54 pH Units (7.32-7.45); ABG PO2 87 mmHg (85-104); ABG TCO2 30 mEq/L (20-26)
[2019-05-01] MEDS: carvediloL 6.25 MG TABLET PO SCH (20:37)
[2019-05-01] MEDS: allopurinoL 100 MG TABLET PO SCH (20:37)
[2019-05-01] MEDS ORDERED: Insulin LISPRO 300 UNITS/3 ML VIAL SQ SCH (21:00)
[2019-05-02] MEDS: *HR* Heparin 5,000 UNIT/ML VIAL SQ SCH ×3 (00:08→16:11)
[2019-05-02] MEDS: Insulin LISPRO 300 UNITS/3 ML VIAL SQ SCH ×4 (00:09→20:57)
[2019-05-02 01:07] LABS: Troponin I 0.66 ng/mL (< 0.04)
[2019-05-02] MEDS: Amiodarone Premix 360 MG/200 ML BAG IVC SCH ×2 (06:11→18:59)
[2019-05-02 06:12] LABS: Basophils % 0.3 %; Eosinophils # 0.1 K/mcL (0.0-0.6); Eosinophils % 1.7 %; Hematocrit 29.3 % (35.3-44.9); Hemoglobin 9.6 g/dL (11.5-15.4); Immature Granulocytes % 0.3 % (0-4); Lymphocytes # 2.2 K/mcL (0.6-4.6); Lymphocytes % 29.9 %; Mean Corpuscular HGB Conc 32.8 g/dL (31.6-35.5); Mean Corpuscular Hemoglobin 31.3 pg (28.0-33.3); Mean Corpuscular Volume 95.4 fL (83.0-100.0); Mean Platelet Volume 12.5 fL (9.4-12.4); Monocytes # 0.5 K/mcL (0.0-1.3); Monocytes % 7.1 %; Neutrophils # 4.6 K/mcL (1.6-8.9); Platelet Count 140 K/mcL (140-400); Red Blood Count 3.07 M/mcL (3.82-4.97); Red Cell Distribution Width 13.6 % (11.5-14.5); Segmented Neutrophils % 60.7 %; White Blood Count 7.5 K/mcL (4.3-11.1)
[2019-05-02 06:16] LABS: Calcium 9.2 mg/dL (8.6-10.3); Magnesium 2.2 mg/dL (1.6-2.6); Potassium 3.3 mEq/L (3.5-5.1)
[2019-05-02 06:31] LABS: Calcium 9.1 mg/dL (8.6-10.3); Magnesium 2.1 mg/dL (1.6-2.6); Potassium 3.1 mEq/L (3.5-5.1)
[2019-05-02] MEDS ORDERED: Potassium Chloride 40 MEQ/200 ML BAG IVPB PRN (07:15)
[2019-05-02] MEDS ORDERED: Insulin LISPRO 300 UNITS/3 ML VIAL SQ SCH ×3 (07:30→11:33)
[2019-05-02] MEDS: allopurinoL 100 MG TABLET PO SCH ×2 (08:38→20:56)
[2019-05-02] MEDS: carvediloL 6.25 MG TABLET PO SCH (08:38)
[2019-05-02] MEDS ORDERED: Isosorbide MONOnitrate (24 HR) 30 MG TAB.ER.24H PO SCH (09:00)
[2019-05-02] MEDS ORDERED: Aspirin Enteric Coated 81 MG Tablet PO SCH (09:00)
[2019-05-02] MEDS ORDERED: Sennosides/Docusate Sodium TABLET PO SCH (09:00)
[2019-05-02] MEDS ORDERED: Bisacodyl 10 MG RECTAL SUPPOSITORY RC PRN (11:43)
[2019-05-02] MEDS ORDERED: Nitroglycerin 0.4 MG TAB.SUBL SL PRN (11:43)
[2019-05-02] MEDS ORDERED: Potassium Chloride 40 MEQ, Lidocaine 1% 2 ML in 0.9 % Sodium Chloride 500 ML IVPB ONE (11:43)
[2019-05-02] MEDS ORDERED: D5% in Water 1,000 ML IVC PRN (11:43)
[2019-05-02] MEDS ORDERED: Naloxone 0.4 MG/ML INJ IVP PRN (11:43)
[2019-05-02] MEDS ORDERED: Dextrose Gel 15 GM/37.5 ML TUBE PO PRN ×2 (11:43)
[2019-05-02] MEDS ORDERED: *HR* Dextrose 50 % in Water (Syg) 50 ML SYRINGE IVP PRN (11:43)
[2019-05-02] MEDS: Potassium Chloride 40 MEQ/200 ML BAG IVPB PRN ×2 (16:43→17:59)
[2019-05-02] MEDS ORDERED: carvediloL 6.25 MG TABLET PO SCH ×2 (17:00)
[2019-05-02] MEDS: Sennosides/Docusate Sodium TABLET PO SCH (20:56)
[2019-05-03] MEDS: *HR* Heparin 5,000 UNIT/ML VIAL SQ SCH ×3 (00:59→17:41)
[2019-05-03 02:02] LABS: Basophils % 0.4 %; Eosinophils # 0.3 K/mcL (0.0-0.6); Eosinophils % 3.2 %; Hematocrit 31.6 % (35.3-44.9); Hemoglobin 10.4 g/dL (11.5-15.4); Immature Granulocytes % 0.1 % (0-4); Lymphocytes # 2.3 K/mcL (0.6-4.6); Lymphocytes % 29.8 %; Mean Corpuscular HGB Conc 32.9 g/dL (31.6-35.5); Mean Corpuscular Hemoglobin 31.3 pg (28.0-33.3); Mean Corpuscular Volume 95.2 fL (83.0-100.0); Mean Platelet Volume 12.7 fL (9.4-12.4); Monocytes # 0.5 K/mcL (0.0-1.3); Monocytes % 6.2 %; Neutrophils # 4.7 K/mcL (1.6-8.9); Platelet Count 140 K/mcL (140-400); Red Blood Count 3.32 M/mcL (3.82-4.97); Red Cell Distribution Width 13.4 % (11.5-14.5); Segmented Neutrophils % 60.3 %; White Blood Count 7.8 K/mcL (4.3-11.1)
[2019-05-03 04:43] LABS: Calcium 8.9 mg/dL (8.6-10.3); Potassium 3.9 mEq/L (3.5-5.1)
[2019-05-03] MEDS: Potassium Chloride 40 MEQ/200 ML BAG IVPB PRN (05:40)
[2019-05-03] MEDS: Amiodarone Premix 360 MG/200 ML BAG IVC SCH (05:40)
[2019-05-03] MEDS ORDERED: carvediloL 6.25 MG TABLET PO SCH (08:00)
[2019-05-03] MEDS: Insulin LISPRO 300 UNITS/3 ML VIAL SQ SCH ×4 (08:17→21:31)
[2019-05-03] MEDS: Isosorbide MONOnitrate (24 HR) 30 MG TAB.ER.24H PO SCH (08:20)
[2019-05-03] MEDS: Sennosides/Docusate Sodium TABLET PO SCH ×2 (08:20→21:28)
[2019-05-03] MEDS: Aspirin Enteric Coated 81 MG Tablet PO SCH (08:20)
[2019-05-03] MEDS: allopurinoL 100 MG TABLET PO SCH ×2 (08:21→21:28)
[2019-05-03] MEDS ORDERED: Sennosides/Docusate Sodium TABLET PO SCH (09:00)
[2019-05-03] MEDS ORDERED: Heparin 1,000 UNITS/500 mL 500 ML ONE (09:36)
[2019-05-03] MEDS ORDERED: *HR* Heparin 10,000 UNIT/10 ML VIAL ONE (09:36)
[2019-05-03] MEDS ORDERED: 0.9 % Sodium Chloride 2,000 ML ONE (09:36)
[2019-05-03] MEDS ORDERED: Nitroglycerin 1,000 MCG/10 ML VIAL IV ONE (09:36)
[2019-05-03] MEDS ORDERED: ISOVUE-370 200 ML INFUS..BTL ONE (09:36)
[2019-05-03] MEDS ORDERED: *HR* Midazolam HCl 2 MG/2 ML VIAL ONE (10:24)
[2019-05-03] MEDS ORDERED: *HR* FentaNYL (PF) 100 MCG/2 ML VIAL ONE (10:25)
[2019-05-03] MEDS ORDERED: carvediloL 6.25 MG TABLET PO ONE (13:51)
[2019-05-03 14:46] LABS: Calcium 8.5 mg/dL (8.6-10.3); Potassium 4.1 mEq/L (3.5-5.1)
[2019-05-03] MEDS: carvediloL 6.25 MG TABLET PO SCH (16:13)
[2019-05-03] MEDS ORDERED: 0.9 % Sodium Chloride 500 ML IV SCH (21:30)
[2019-05-04] MEDS: *HR* Heparin 5,000 UNIT/ML VIAL SQ SCH ×2 (01:11→07:46)
[2019-05-04 01:48] LABS: Calcium 9.1 mg/dL (8.6-10.3); Potassium 4.1 mEq/L (3.5-5.1)
[2019-05-04] MEDS: carvediloL 6.25 MG TABLET PO SCH (07:45)
[2019-05-04] MEDS: Sennosides/Docusate Sodium TABLET PO SCH (07:45)
[2019-05-04] MEDS: Isosorbide MONOnitrate (24 HR) 30 MG TAB.ER.24H PO SCH (07:45)
[2019-05-04] MEDS: allopurinoL 100 MG TABLET PO SCH (07:45)
[2019-05-04] MEDS: Aspirin Enteric Coated 81 MG Tablet PO SCH (07:45)
[2019-05-04] MEDS: Insulin LISPRO 300 UNITS/3 ML VIAL SQ SCH ×2 (07:47→11:59)
[2019-05-04 08:06] LABS: Calcium 8.9 mg/dL (8.6-10.3); Potassium 4.2 mEq/L (3.5-5.1)
[2019-05-04 11:06] VITALS: BP 137/63
[2019-05-04] MEDS ORDERED: carvediloL 25 MG TABLET PO SCH (17:00)
[2019-05-05] MEDS ORDERED: Ergocalciferol (VIT D2) 50,000 UNIT (1.25MG) CAP PO SCH ×2 (18:21)
== END 2019-05-04 14:00 | disposition home or self-care (01) | DRG 286 ==
LOC: EMEROOARM 11:37 → SUATTDRO 13:47 → ICNU 13:47 → 2NNU 05-02 17:40
PROVIDERS: ADMIT Internal Medicine Pulmonary Disease; ATTEND Internal Medicine

== ENCOUNTER 2019-06-15 12:40 | Inpatient (IN) ==
[2019-06-15 13:48] LABS: Basophils % 0.6 %; Eosinophils # 0.2 K/mcL (0.0-0.6); Eosinophils % 4.2 %; Hematocrit 33.5 % (35.3-44.9); Hemoglobin 10.9 g/dL (11.5-15.4); Immature Granulocytes % 0.2 % (0-4); Lymphocytes # 1.6 K/mcL (0.6-4.6); Lymphocytes % 31.4 %; Mean Corpuscular HGB Conc 32.5 g/dL (31.6-35.5); Mean Corpuscular Hemoglobin 31.5 pg (28.0-33.3); Mean Corpuscular Volume 96.8 fL (83.0-100.0); Mean Platelet Volume 12.6 fL (9.4-12.4); Monocytes # 0.4 K/mcL (0.0-1.3); Neutrophils # 2.8 K/mcL (1.6-8.9); Platelet Count 142 K/mcL (140-400); Red Blood Count 3.46 M/mcL (3.82-4.97); Red Cell Distribution Width 13.7 % (11.5-14.5); Segmented Neutrophils % 56.6 %
[2019-06-15 13:55] LABS: VBG Ionized Calcium 1.65 mmol/L (1.15-1.35)
[2019-06-15 14:24] LABS: Albumin 3.7 g/dL (3.5-5.7); Albumin/Globulin Ratio 1.1 (1.1-2.2); Bilirubin,Total 0.6 mg/dL (0.3-1.0); Calcium 14.5 mg/dL (8.6-10.3); Globulin 3.5 g/dL (2.4-3.5); Magnesium 2.2 mg/dL (1.6-2.6); Phosphorous 3.8 mg/dL (2.7-4.5); Potassium 3.2 mEq/L (3.5-5.1); Total Protein 7.2 g/dL (6.4-8.9)
[2019-06-15] MEDS ORDERED: 0.9 % Sodium Chloride 1,000 ML IVC ONE (14:37)
[2019-06-15] MEDS ORDERED: Naloxone 0.4 MG/ML INJ IVP PRN (15:36)
[2019-06-15] MEDS ORDERED: D5% in Water 1,000 ML IVC PRN (16:01)
[2019-06-15] MEDS ORDERED: *HR* Dextrose 50 % in Water (Syg) 50 ML SYRINGE IVP PRN (16:01)
[2019-06-15] MEDS ORDERED: Dextrose Gel 15 GM/37.5 ML TUBE PO PRN ×2 (16:01)
[2019-06-15] MEDS ORDERED: 0.9 % Sodium Chloride 1,000 ML IVC SCH (16:15)
[2019-06-15] MEDS: Insulin LISPRO 300 UNITS/3 ML VIAL SQ SCH (17:28)
[2019-06-15] MEDS ORDERED: amLODIPine 5 MG TABLET PO SCH (18:15)
[2019-06-15] MEDS ORDERED: Nitroglycerin 0.4 MG TAB.SUBL SL PRN (18:30)
[2019-06-15] MEDS: Aspirin Enteric Coated 81 MG Tablet PO SCH (19:21)
[2019-06-15] MEDS: allopurinoL 100 MG TABLET PO SCH (19:21)
[2019-06-15] MEDS: carvediloL 6.25 MG TABLET PO SCH (19:21)
[2019-06-15] MEDS ORDERED: *HR* Labetalol 20 MG/4 ML SYRINGE IVP ONE (20:32)
[2019-06-15] MEDS: *HR* Heparin 5,000 UNIT/ML VIAL SQ SCH (20:58)
[2019-06-15 21:18] LABS: Bilirubin,Urine Negative (Negative); Blood,Urine Trace (Negative); Clarity,Urine Cloudy (Clear); Color,Urine Yellow (Yellow); Glucose,Urine (UA) Normal (Normal); Ketones,Urine Negative (Negative); Leukocyte Esterase,Urine Negative (Negative); Nitrite,Urine Negative (Negative); Protein,Urine 30 mg/dL (Neg-Trace); Specific Gravity,Urine 1.011 (1.010-1.025); Urobilinogen,Urine Normal (Normal)
[2019-06-15 21:20] LABS: Bacteria,Urine None Seen per hpf (None-Few); Hyaline Casts,Urine None Seen per lpf (None-Few); RBC,Urine 0-3 per hpf (0-3); Squamous Epithelial Cell,Urine Many per lpf (None-Few); WBC,Urine 0-3 per hpf (0-3)
[2019-06-16 03:48] LABS: VBG Ionized Calcium 1.59 mmol/L (1.15-1.35)
[2019-06-16 04:07] LABS: Calcium 13.6 mg/dL (8.6-10.3); Phosphorous 4.5 mg/dL (2.7-4.5); Potassium 3.7 mEq/L (3.5-5.1)
[2019-06-16] MEDS: *HR* Heparin 5,000 UNIT/ML VIAL SQ SCH ×3 (04:39→20:39)
[2019-06-16] MEDS ORDERED: Calcitonin-Salmon, Synthetic 400 UNIT/2 ML VIAL IM ONE (07:25)
[2019-06-16] MEDS: niCARdipine 20 MG/200 ML MLS IVC SCH ×2 (07:34→07:36)
[2019-06-16] MEDS: carvediloL 6.25 MG TABLET PO SCH ×2 (08:34→17:33)
[2019-06-16] MEDS: Furosemide 40 MG TABLET PO SCH (08:34)
[2019-06-16] MEDS: Isosorbide MONOnitrate (24 HR) 30 MG TAB.ER.24H PO SCH (08:34)
[2019-06-16] MEDS: Insulin LISPRO 300 UNITS/3 ML VIAL SQ SCH ×3 (08:34→17:33)
[2019-06-16] MEDS: allopurinoL 100 MG TABLET PO SCH ×2 (08:34→20:38)
[2019-06-16] MEDS ORDERED: 0.9 % Sodium Chloride 500 ML IVC SCH (08:45)
[2019-06-16] MEDS: hydrALAZINE 25 MG TABLET PO SCH ×2 (17:33→23:51)
[2019-06-16] MEDS ORDERED: Ergocalciferol (VIT D2) 50,000 UNIT (1.25MG) CAP PO SCH (18:00)
[2019-06-17 04:24] LABS: Magnesium 1.9 mg/dL (1.6-2.6); Phosphorous 3.1 mg/dL (2.7-4.5); Potassium 3.4 mEq/L (3.5-5.1)
[2019-06-17] MEDS: *HR* Heparin 5,000 UNIT/ML VIAL SQ SCH ×3 (05:07→20:32)
[2019-06-17] MEDS: Furosemide 40 MG TABLET PO SCH (09:20)
[2019-06-17] MEDS: Insulin LISPRO 300 UNITS/3 ML VIAL SQ SCH ×3 (09:21→16:51)
[2019-06-17] MEDS: Isosorbide MONOnitrate (24 HR) 30 MG TAB.ER.24H PO SCH (09:21)
[2019-06-17] MEDS: carvediloL 6.25 MG TABLET PO SCH ×2 (09:21→16:51)
[2019-06-17] MEDS: allopurinoL 100 MG TABLET PO SCH ×2 (09:21→20:32)
[2019-06-17] MEDS: hydrALAZINE 25 MG TABLET PO SCH ×2 (09:21→16:51)
[2019-06-17] MEDS: Aspirin Enteric Coated 81 MG Tablet PO SCH (16:51)
[2019-06-17 22:58] LABS: Kappa Qnt Free Light Chains 114.24 mg/L (3.30-19.40); Lambda Qnt Free Light Chains 53.75 mg/L (5.71-26.30)
[2019-06-18] MEDS: hydrALAZINE 25 MG TABLET PO SCH ×3 (00:29→17:07)
[2019-06-18] MEDS: *HR* Heparin 5,000 UNIT/ML VIAL SQ SCH ×3 (06:26→20:05)
[2019-06-18] MEDS: Furosemide 40 MG TABLET PO SCH (08:16)
[2019-06-18] MEDS: Isosorbide MONOnitrate (24 HR) 30 MG TAB.ER.24H PO SCH (08:16)
[2019-06-18] MEDS: allopurinoL 100 MG TABLET PO SCH ×2 (08:16→20:03)
[2019-06-18] MEDS: carvediloL 6.25 MG TABLET PO SCH ×2 (08:16→17:07)
[2019-06-18] MEDS: Insulin LISPRO 300 UNITS/3 ML VIAL SQ SCH ×3 (08:16→17:09)
[2019-06-18 09:57] LABS: Calcium 11.1 mg/dL (8.6-10.3)
[2019-06-18] MEDS ORDERED: 0.9 % Sodium Chloride 1,000 ML IVC SCH (13:15)
[2019-06-19] MEDS: hydrALAZINE 25 MG TABLET PO SCH ×4 (00:47→23:19)
[2019-06-19] MEDS: *HR* Heparin 5,000 UNIT/ML VIAL SQ SCH ×3 (05:32→23:15)
[2019-06-19 06:59] LABS: Basophils % 0.4 %; Eosinophils # 0.2 K/mcL (0.0-0.6); Eosinophils % 4.9 %; Hematocrit 27.2 % (35.3-44.9); Immature Granulocytes % 0.2 % (0-4); Lymphocytes # 1.5 K/mcL (0.6-4.6); Lymphocytes % 32.6 %; Mean Corpuscular HGB Conc 32.4 g/dL (31.6-35.5); Mean Corpuscular Hemoglobin 31.1 pg (28.0-33.3); Mean Corpuscular Volume 96.1 fL (83.0-100.0); Mean Platelet Volume 12.6 fL (9.4-12.4); Monocytes # 0.4 K/mcL (0.0-1.3); Monocytes % 8.5 %; Neutrophils # 2.4 K/mcL (1.6-8.9); Platelet Count 119 K/mcL (140-400); Red Blood Count 2.83 M/mcL (3.82-4.97); Red Cell Distribution Width 13.5 % (11.5-14.5); Segmented Neutrophils % 53.4 %; White Blood Count 4.5 K/mcL (4.3-11.1)
[2019-06-19 07:00] LABS: Hemoglobin 8.8 g/dL (11.5-15.4)
[2019-06-19 07:19] LABS: Calcium 11.4 mg/dL (8.6-10.3); Magnesium 1.5 mg/dL (1.6-2.6); Phosphorous 3.8 mg/dL (2.7-4.5); Potassium 3.2 mEq/L (3.5-5.1)
[2019-06-19] MEDS: carvediloL 6.25 MG TABLET PO SCH ×2 (07:50→16:57)
[2019-06-19] MEDS: Insulin LISPRO 300 UNITS/3 ML VIAL SQ SCH ×3 (07:51→17:41)
[2019-06-19] MEDS: Isosorbide MONOnitrate (24 HR) 30 MG TAB.ER.24H PO SCH (07:51)
[2019-06-19] MEDS: allopurinoL 100 MG TABLET PO SCH ×2 (07:51→19:58)
[2019-06-19] MEDS: Aspirin Enteric Coated 81 MG Tablet PO SCH (17:30)
[2019-06-20] MEDS: *HR* Heparin 5,000 UNIT/ML VIAL SQ SCH ×3 (05:09→21:17)
[2019-06-20] MEDS: carvediloL 6.25 MG TABLET PO SCH ×2 (07:57→16:52)
[2019-06-20] MEDS: hydrALAZINE 25 MG TABLET PO SCH ×2 (07:57→16:52)
[2019-06-20] MEDS: allopurinoL 100 MG TABLET PO SCH ×2 (07:58→21:16)
[2019-06-20] MEDS: Isosorbide MONOnitrate (24 HR) 30 MG TAB.ER.24H PO SCH (07:58)
[2019-06-20] MEDS: Insulin LISPRO 300 UNITS/3 ML VIAL SQ SCH ×4 (08:03→21:11)
[2019-06-20 08:34] LABS: Basophils % 0.7 %; Eosinophils # 0.2 K/mcL (0.0-0.6); Eosinophils % 4.7 %; Hematocrit 28.5 % (35.3-44.9); Hemoglobin 9.4 g/dL (11.5-15.4); Immature Granulocytes % 0.2 % (0-4); Immature Reticulocyte % 9.8 % (11.0-38.0); Lymphocytes # 1.5 K/mcL (0.6-4.6); Lymphocytes % 32.4 %; Mean Corpuscular Volume 96.9 fL (83.0-100.0); Mean Platelet Volume 12.3 fL (9.4-12.4); Monocytes # 0.4 K/mcL (0.0-1.3); Monocytes % 8.5 %; Neutrophils # 2.4 K/mcL (1.6-8.9); Platelet Count 125 K/mcL (140-400); Red Blood Count 2.94 M/mcL (3.82-4.97); Red Cell Distribution Width 13.6 % (11.5-14.5); Retculocyte # 0.04 M/mcL (0.05-0.10); Reticulocyte % 1.2 % (1.6-2.8); Segmented Neutrophils % 53.5 %; White Blood Count 4.5 K/mcL (4.3-11.1)
[2019-06-20 08:50] LABS: Magnesium 1.7 mg/dL (1.6-2.6)
[2019-06-20 08:51] LABS: Calcium 11.9 mg/dL (8.6-10.3); Potassium 3.5 mEq/L (3.5-5.1)
[2019-06-20 08:53] LABS: % Iron Saturation 20 % (15-50); Iron 39 mcg/dL (50-170); Transferrin 141 mg/dL (203-362)
[2019-06-20 09:10] LABS: Ferritin 472 ng/mL (10-120)
[2019-06-20 09:20] LABS: Triiodothyronine (T3) Total 0.66 ng/mL (0.87-1.78)
[2019-06-20 11:47] LABS: INR 0.9; Prothrombin Time 10.3 Seconds (9.4-12.1)
[2019-06-20] MEDS ORDERED: *HR* FentaNYL (PF) 100 MCG/2 ML VIAL ONE (12:25)
[2019-06-20] MEDS ORDERED: 0.9 % Sodium Chloride 500 ML ONE (12:26)
[2019-06-20] MEDS ORDERED: *HR* Midazolam HCl 2 MG/2 ML VIAL ONE (12:26)
[2019-06-20] MEDS ORDERED: *HR* FentaNYL (PF) 100 MCG/2 ML VIAL IVP ONE (12:58)
[2019-06-20] MEDS ORDERED: *HR* Midazolam HCl 2 MG/2 ML VIAL IVP ONE (13:05)
[2019-06-20] MEDS ORDERED: 0.9 % Sodium Chloride 1,000 ML IVC SCH (16:15)
[2019-06-20] MEDS ORDERED: Pamidronate 30 MG in 0.9 % Sodium Chloride 500 ML IVPB ONE (16:30)
[2019-06-20] MEDS ORDERED: Insulin LISPRO 300 UNITS/3 ML VIAL SQ SCH (21:00)
[2019-06-21] MEDS: hydrALAZINE 25 MG TABLET PO SCH ×3 (00:02→16:46)
[2019-06-21] MEDS: *HR* Heparin 5,000 UNIT/ML VIAL SQ SCH ×3 (06:01→20:22)
[2019-06-21 06:47] LABS: Albumin 3.1 g/dL (3.5-5.7); Albumin/Globulin Ratio 1.1 (1.1-2.2); Bilirubin,Total 0.4 mg/dL (0.3-1.0); Calcium 11.9 mg/dL (8.6-10.3); Globulin 2.9 g/dL (2.4-3.5); Potassium 3.6 mEq/L (3.5-5.1)
[2019-06-21 06:48] LABS: Magnesium 1.6 mg/dL (1.6-2.6); Phosphorous 3.7 mg/dL (2.7-4.5)
[2019-06-21 06:58] LABS: Basophils % 0.8 %; Eosinophils # 0.2 K/mcL (0.0-0.6); Eosinophils % 4.2 %; Hematocrit 29.3 % (35.3-44.9); Hemoglobin 9.6 g/dL (11.5-15.4); Immature Granulocytes % 0.2 % (0-4); Lymphocytes # 1.8 K/mcL (0.6-4.6); Lymphocytes % 36.2 %; Mean Corpuscular HGB Conc 32.8 g/dL (31.6-35.5); Mean Corpuscular Hemoglobin 31.8 pg (28.0-33.3); Monocytes # 0.4 K/mcL (0.0-1.3); Monocytes % 8.8 %; Neutrophils # 2.5 K/mcL (1.6-8.9); Platelet Count 123 K/mcL (140-400); Red Blood Count 3.02 M/mcL (3.82-4.97); Red Cell Distribution Width 13.6 % (11.5-14.5); Segmented Neutrophils % 49.8 %
[2019-06-21] MEDS: Cyanocobalamin (B-12) 1,000 MCG TABLET PO SCH (07:42)
[2019-06-21] MEDS: allopurinoL 100 MG TABLET PO SCH ×2 (07:42→20:22)
[2019-06-21] MEDS: Insulin LISPRO 300 UNITS/3 ML VIAL SQ SCH ×4 (07:42→20:17)
[2019-06-21] MEDS: carvediloL 6.25 MG TABLET PO SCH ×2 (07:42→16:46)
[2019-06-21] MEDS: Isosorbide MONOnitrate (24 HR) 30 MG TAB.ER.24H PO SCH (07:43)
[2019-06-21] MEDS: Aspirin Enteric Coated 81 MG Tablet PO SCH (16:46)
[2019-06-21] MEDS: Magnesium Oxide 400 MG TABLET PO SCH (19:02)
[2019-06-21 23:16] LABS: Alpha 2 Globulin (PEP) 0.59 g/dL (0.48-1.05); Beta Globulin (PEP) 0.94 g/dL (0.48-1.10)
[2019-06-22] MEDS: hydrALAZINE 25 MG TABLET PO SCH ×2 (00:30→08:39)
[2019-06-22] MEDS: *HR* Heparin 5,000 UNIT/ML VIAL SQ SCH (05:48)
[2019-06-22 07:03] LABS: IFE Reflexed NOT DONE
[2019-06-22 07:12] LABS: Immunoglobulin A 452 mg/dL (68-408); Immunoglobulin G 992 mg/dL (768-1632); Immunoglobulin M 94 mg/dL (35-263)
[2019-06-22 08:04] LABS: Hematocrit 28.9 % (35.3-44.9); Hemoglobin 9.2 g/dL (11.5-15.4); Mean Corpuscular HGB Conc 31.8 g/dL (31.6-35.5); Mean Corpuscular Hemoglobin 31.2 pg (28.0-33.3); Red Blood Count 2.95 M/mcL (3.82-4.97); Red Cell Distribution Width 13.6 % (11.5-14.5); White Blood Count 4.9 K/mcL (4.3-11.1)
[2019-06-22 08:05] LABS: Basophils % 0.4 %; Eosinophils # 0.2 K/mcL (0.0-0.6); Eosinophils % 4.3 %; Immature Granulocytes % 0.4 % (0-4); Lymphocytes # 1.6 K/mcL (0.6-4.6); Lymphocytes % 32.4 %; Mean Platelet Volume 12.6 fL (9.4-12.4); Monocytes # 0.4 K/mcL (0.0-1.3); Monocytes % 8.5 %; Neutrophils # 2.6 K/mcL (1.6-8.9); Platelet Count 129 K/mcL (140-400)
[2019-06-22 08:19] LABS: Calcium 11.5 mg/dL (8.6-10.3); Magnesium 1.6 mg/dL (1.6-2.6); Phosphorous 3.7 mg/dL (2.7-4.5); Potassium 3.5 mEq/L (3.5-5.1)
[2019-06-22] MEDS: Cyanocobalamin (B-12) 1,000 MCG TABLET PO SCH (08:39)
[2019-06-22] MEDS: carvediloL 6.25 MG TABLET PO SCH (08:39)
[2019-06-22] MEDS: allopurinoL 100 MG TABLET PO SCH (08:39)
[2019-06-22] MEDS: Isosorbide MONOnitrate (24 HR) 30 MG TAB.ER.24H PO SCH (08:39)
[2019-06-22] MEDS: Magnesium Oxide 400 MG TABLET PO SCH (08:40)
[2019-06-22] MEDS: Insulin LISPRO 300 UNITS/3 ML VIAL SQ SCH ×2 (08:40→13:08)
[2019-06-22 10:48] VITALS: BP 145/73
== END 2019-06-22 13:07 | disposition home health service (06) | DRG 641 ==
LOC: 3BNU 12:40 → EMEROOARM 12:40 → SUATTDRO 15:36 → 3BNU 16:50 → SUATTDRO 06-16 12:54
PROVIDERS: ADMIT Family Medicine; ATTEND Internal Medicine

== ENCOUNTER 2019-12-10 11:58 | Inpatient (IN) ==
[2019-12-10] MEDS ORDERED: Aspirin 325 MG TABLET PO ONE (12:14)
[2019-12-10 13:26] LABS: VBG Ionized Calcium 1.25 mmol/L (1.15-1.35)
[2019-12-10 13:50] LABS: Basophils % 0.6 %; Eosinophils # 0.1 K/mcL (0.0-0.6); Eosinophils % 1.3 %; Hematocrit 28.9 % (35.3-44.9); Hemoglobin 9.4 g/dL (11.5-15.4); Immature Granulocytes % 0.3 % (0-4); Lymphocytes # 1.2 K/mcL (0.6-4.6); Lymphocytes % 17.3 %; Mean Corpuscular HGB Conc 32.5 g/dL (31.6-35.5); Mean Corpuscular Hemoglobin 30.5 pg (28.0-33.3); Mean Corpuscular Volume 93.8 fL (83.0-100.0); Mean Platelet Volume 12.9 fL (9.4-12.4); Monocytes # 0.4 K/mcL (0.0-1.3); Neutrophils # 5.3 K/mcL (1.6-8.9); Platelet Count 137 K/mcL (140-400); Red Blood Count 3.08 M/mcL (3.82-4.97); Red Cell Distribution Width 13.3 % (11.5-14.5); Segmented Neutrophils % 75.5 %
[2019-12-10 14:03] LABS: Albumin 3.2 g/dL (3.5-5.7); Bilirubin,Total 0.5 mg/dL (0.3-1.0); Calcium 9.9 mg/dL (8.6-10.3); Globulin 3.3 g/dL (2.4-3.5); Magnesium 1.7 mg/dL (1.6-2.6); Total Protein 6.5 g/dL (6.4-8.9); Troponin I 0.41 ng/mL (< 0.04)
[2019-12-10] MEDS ORDERED: Furosemide 20 MG/2 ML VIAL IVP ONE (14:18)
[2019-12-10] MEDS ORDERED: D5% in Water 1,000 ML IVC PRN (15:02)
[2019-12-10] MEDS ORDERED: Naloxone 0.4 MG/ML INJ IVP PRN (15:02)
[2019-12-10] MEDS ORDERED: Acetaminophen 325 MG TABLET PO PRN (15:02)
[2019-12-10] MEDS ORDERED: Ondansetron 4 MG/2 ML VIAL IVP PRN (15:02)
[2019-12-10] MEDS ORDERED: *HR* Dextrose 50 % in Water (Vial) 50 ML VIAL IVP PRN (15:02)
[2019-12-10] MEDS ORDERED: Dextrose Gel 15 GM/37.5 ML TUBE PO PRN ×2 (15:02)
[2019-12-10] MEDS ORDERED: Perflutren Lipid Microsphere 1.3 ML in 0.9 % Sodium Chloride 8.7 ML IVP PRN (15:05)
[2019-12-10] MEDS ORDERED: Nitroglycerin 1 INCH/GM PACKET TP ONE (15:41)
[2019-12-10] MEDS ORDERED: Nitroglycerin 0.4 MG TAB.SUBL SL PRN (15:41)
[2019-12-10] MEDS ORDERED: *HR* Heparin 5,000 UNIT/ML VIAL IVP ONE (15:54)
[2019-12-10] MEDS ORDERED: *HR* Heparin 5,000 UNIT/ML VIAL IVP PRN ×2 (15:54)
[2019-12-10] MEDS: Heparin 25,000UNIT/250ML 1/2NS 25,000 UNIT/250 ML IV.SOLN IVC SCH (17:36)
[2019-12-10] MEDS: Insulin LISPRO 300 UNITS/3 ML VIAL SQ SCH (17:38)
[2019-12-10] MEDS ORDERED: *HR* Heparin 5,000 UNIT/ML VIAL SQ SCH (18:00)
[2019-12-10 18:41] LABS: INR 1.1; Prothrombin Time 12.8 Seconds (9.4-12.1)
[2019-12-10] MEDS: Furosemide 20 MG/2 ML VIAL IVP SCH (21:57)
[2019-12-10] MEDS: carvediloL 6.25 MG TABLET PO SCH (21:58)
[2019-12-10] MEDS: Insulin DETEMIR 100 UNIT/ML X5UNITS SQ SCH (21:58)
[2019-12-11 00:48] LABS: Basophils % 0.3 %; Eosinophils # 0.2 K/mcL (0.0-0.6); Eosinophils % 2.5 %; Hematocrit 29.6 % (35.3-44.9); Hemoglobin 9.9 g/dL (11.5-15.4); Immature Granulocytes % 0.1 % (0-4); Lymphocytes # 1.9 K/mcL (0.6-4.6); Lymphocytes % 25.6 %; Mean Corpuscular HGB Conc 33.4 g/dL (31.6-35.5); Mean Corpuscular Hemoglobin 31.4 pg (28.0-33.3); Mean Platelet Volume 12.5 fL (9.4-12.4); Monocytes # 0.5 K/mcL (0.0-1.3); Monocytes % 6.4 %; Neutrophils # 4.7 K/mcL (1.6-8.9); Platelet Count 133 K/mcL (140-400); Red Blood Count 3.15 M/mcL (3.82-4.97); Red Cell Distribution Width 13.3 % (11.5-14.5); Segmented Neutrophils % 65.1 %; White Blood Count 7.2 K/mcL (4.3-11.1)
[2019-12-11 01:07] LABS: Calcium 9.8 mg/dL (8.6-10.3); Magnesium 1.7 mg/dL (1.6-2.6); Potassium 3.7 mEq/L (3.5-5.1)
[2019-12-11 01:13] LABS: Troponin I 0.57 ng/mL (< 0.04)
[2019-12-11] MEDS: Insulin LISPRO 300 UNITS/3 ML VIAL SQ SCH ×3 (07:42→17:00)
[2019-12-11] MEDS: Furosemide 20 MG/2 ML VIAL IVP SCH (07:43)
[2019-12-11] MEDS: carvediloL 6.25 MG TABLET PO SCH ×2 (07:43→16:56)
[2019-12-11] MEDS: Aspirin Enteric Coated 81 MG Tablet PO SCH (12:59)
[2019-12-11] MEDS: Furosemide 40 MG/4 ML VIAL IVP SCH (16:57)
[2019-12-11] MEDS: Heparin 25,000UNIT/250ML 1/2NS 25,000 UNIT/250 ML IV.SOLN IVC SCH (21:00)
[2019-12-11] MEDS: Insulin DETEMIR 100 UNIT/ML X5UNITS SQ SCH (23:08)
[2019-12-12] MEDS: Insulin LISPRO 300 UNITS/3 ML VIAL SQ SCH ×3 (08:05→17:12)
[2019-12-12 08:32] LABS: Calcium 9.4 mg/dL (8.6-10.3); Potassium 3.7 mEq/L (3.5-5.1)
[2019-12-12 08:33] LABS: Basophils % 0.5 %; Eosinophils # 0.2 K/mcL (0.0-0.6); Hematocrit 28.8 % (35.3-44.9); Hemoglobin 9.4 g/dL (11.5-15.4); Immature Granulocytes % 0.3 % (0-4); Lymphocytes # 1.9 K/mcL (0.6-4.6); Lymphocytes % 32.2 %; Mean Corpuscular HGB Conc 32.6 g/dL (31.6-35.5); Mean Corpuscular Hemoglobin 30.8 pg (28.0-33.3); Mean Corpuscular Volume 94.4 fL (83.0-100.0); Mean Platelet Volume 12.4 fL (9.4-12.4); Monocytes # 0.5 K/mcL (0.0-1.3); Monocytes % 8.8 %; Neutrophils # 3.2 K/mcL (1.6-8.9); Platelet Count 134 K/mcL (140-400); Red Blood Count 3.05 M/mcL (3.82-4.97); Red Cell Distribution Width 13.2 % (11.5-14.5); Segmented Neutrophils % 54.2 %; White Blood Count 5.9 K/mcL (4.3-11.1)
[2019-12-12] MEDS: carvediloL 6.25 MG TABLET PO SCH ×2 (09:15→17:11)
[2019-12-12] MEDS: Aspirin Enteric Coated 81 MG Tablet PO SCH (09:15)
[2019-12-12] MEDS: Furosemide 40 MG/4 ML VIAL IVP SCH ×2 (09:15→17:12)
[2019-12-12] MEDS: Isosorbide MONOnitrate (24 HR) 60 MG TAB.ER.24H PO SCH (14:24)
[2019-12-12] MEDS: *HR* Acetylcysteine 20% 600 MG/3 ML ORAL SYRINGE PO SCH (20:29)
[2019-12-12] MEDS: Insulin DETEMIR 100 UNIT/ML X5UNITS SQ SCH (20:30)
[2019-12-13] MEDS: Heparin 25,000UNIT/250ML 1/2NS 25,000 UNIT/250 ML IV.SOLN IVC SCH (04:39)
[2019-12-13 06:05] LABS: Basophils % 0.7 %; Eosinophils # 0.2 K/mcL (0.0-0.6); Eosinophils % 4.1 %; Hematocrit 27.8 % (35.3-44.9); Hemoglobin 9.1 g/dL (11.5-15.4); Immature Granulocytes % 0.4 % (0-4); Lymphocytes # 1.9 K/mcL (0.6-4.6); Lymphocytes % 33.7 %; Mean Corpuscular HGB Conc 32.7 g/dL (31.6-35.5); Mean Corpuscular Hemoglobin 30.6 pg (28.0-33.3); Mean Corpuscular Volume 93.6 fL (83.0-100.0); Mean Platelet Volume 12.9 fL (9.4-12.4); Monocytes # 0.5 K/mcL (0.0-1.3); Monocytes % 8.8 %; Platelet Count 151 K/mcL (140-400); Red Blood Count 2.97 M/mcL (3.82-4.97); Red Cell Distribution Width 13.2 % (11.5-14.5); Segmented Neutrophils % 52.3 %; White Blood Count 5.7 K/mcL (4.3-11.1)
[2019-12-13 06:21] LABS: Calcium 9.6 mg/dL (8.6-10.3); Potassium 3.6 mEq/L (3.5-5.1)
[2019-12-13] MEDS: Insulin LISPRO 300 UNITS/3 ML VIAL SQ SCH ×3 (09:06→16:21)
[2019-12-13] MEDS: Isosorbide MONOnitrate (24 HR) 60 MG TAB.ER.24H PO SCH (09:09)
[2019-12-13] MEDS: carvediloL 6.25 MG TABLET PO SCH (09:09)
[2019-12-13] MEDS: Aspirin Enteric Coated 81 MG Tablet PO SCH (09:09)
[2019-12-13] MEDS: Furosemide 40 MG/4 ML VIAL IVP SCH (09:10)
[2019-12-13] MEDS: *HR* Acetylcysteine 20% 600 MG/3 ML ORAL SYRINGE PO SCH ×2 (14:47→21:18)
[2019-12-13] MEDS: carvediloL 25 MG TABLET PO SCH (16:20)
[2019-12-13] MEDS: Insulin DETEMIR 100 UNIT/ML X5UNITS SQ SCH (21:23)
[2019-12-14] MEDS: Insulin LISPRO 300 UNITS/3 ML VIAL SQ SCH ×3 (08:47→17:42)
[2019-12-14] MEDS: *HR* Acetylcysteine 20% 600 MG/3 ML ORAL SYRINGE PO SCH (08:48)
[2019-12-14] MEDS: Isosorbide MONOnitrate (24 HR) 60 MG TAB.ER.24H PO SCH (08:48)
[2019-12-14] MEDS: Furosemide 40 MG TABLET PO SCH (08:48)
[2019-12-14] MEDS: Aspirin Enteric Coated 81 MG Tablet PO SCH (08:48)
[2019-12-14] MEDS: carvediloL 25 MG TABLET PO SCH ×2 (08:49→17:42)
[2019-12-14 11:02] LABS: Basophils % 0.6 %; Immature Granulocytes % 0.4 % (0-4); Mean Corpuscular Volume 94.7 fL (83.0-100.0)
[2019-12-14 11:04] LABS: Eosinophils # 0.2 K/mcL (0.0-0.6); Eosinophils % 3.4 %; Hematocrit 30.1 % (35.3-44.9); Hemoglobin 9.6 g/dL (11.5-15.4); Immature Platelets 9.8 % (1.1-6.1); Lymphocytes # 1.1 K/mcL (0.6-4.6); Lymphocytes % 21.1 %; Mean Corpuscular HGB Conc 31.9 g/dL (31.6-35.5); Mean Corpuscular Hemoglobin 30.2 pg (28.0-33.3); Mean Platelet Volume 12.3 fL (9.4-12.4); Monocytes # 0.4 K/mcL (0.0-1.3); Monocytes % 8.2 %; Neutrophils # 3.3 K/mcL (1.6-8.9); Platelet Count 145 K/mcL (140-400); Red Blood Count 3.18 M/mcL (3.82-4.97); Segmented Neutrophils % 66.3 %
[2019-12-14 11:46] LABS: Calcium 9.6 mg/dL (8.6-10.3); Potassium 3.6 mEq/L (3.5-5.1)
[2019-12-14] MEDS: Insulin DETEMIR 100 UNIT/ML X5UNITS SQ SCH (20:45)
[2019-12-15 05:21] LABS: Basophils % 0.4 %; Eosinophils # 0.2 K/mcL (0.0-0.6); Eosinophils % 4.4 %; Hematocrit 26.4 % (35.3-44.9); Hemoglobin 8.8 g/dL (11.5-15.4); Immature Granulocytes % 0.2 % (0-4); Lymphocytes # 1.6 K/mcL (0.6-4.6); Lymphocytes % 31.3 %; Mean Corpuscular HGB Conc 33.3 g/dL (31.6-35.5); Mean Corpuscular Hemoglobin 31.4 pg (28.0-33.3); Mean Corpuscular Volume 94.3 fL (83.0-100.0); Mean Platelet Volume 12.9 fL (9.4-12.4); Monocytes # 0.5 K/mcL (0.0-1.3); Monocytes % 10.7 %; Neutrophils # 2.7 K/mcL (1.6-8.9); Platelet Count 139 K/mcL (140-400); Red Cell Distribution Width 12.9 % (11.5-14.5)
[2019-12-15 05:36] LABS: Calcium 9.3 mg/dL (8.6-10.3); Potassium 3.8 mEq/L (3.5-5.1)
[2019-12-15] MEDS: Isosorbide MONOnitrate (24 HR) 60 MG TAB.ER.24H PO SCH (08:19)
[2019-12-15] MEDS: carvediloL 25 MG TABLET PO SCH ×2 (08:19→16:47)
[2019-12-15] MEDS: Aspirin Enteric Coated 81 MG Tablet PO SCH (08:19)
[2019-12-15] MEDS: Insulin LISPRO 300 UNITS/3 ML VIAL SQ SCH ×3 (08:19→16:47)
[2019-12-15] MEDS: Furosemide 40 MG TABLET PO SCH (08:19)
[2019-12-15] MEDS: Insulin DETEMIR 100 UNIT/ML X5UNITS SQ SCH (21:11)
[2019-12-16] MEDS: Insulin LISPRO 300 UNITS/3 ML VIAL SQ SCH ×3 (09:03→16:47)
[2019-12-16] MEDS: Isosorbide MONOnitrate (24 HR) 60 MG TAB.ER.24H PO SCH (09:04)
[2019-12-16] MEDS: Aspirin Enteric Coated 81 MG Tablet PO SCH (09:04)
[2019-12-16] MEDS: carvediloL 25 MG TABLET PO SCH ×2 (09:04→16:45)
[2019-12-16] MEDS: Furosemide 40 MG TABLET PO SCH (09:04)
[2019-12-16 11:22] LABS: Basophils % 0.7 %; Eosinophils # 0.2 K/mcL (0.0-0.6); Eosinophils % 4.5 %; Hematocrit 28.2 % (35.3-44.9); Hemoglobin 8.9 g/dL (11.5-15.4); Immature Granulocytes % 0.2 % (0-4); Lymphocytes # 1.1 K/mcL (0.6-4.6); Lymphocytes % 25.9 %; Mean Corpuscular HGB Conc 31.6 g/dL (31.6-35.5); Mean Corpuscular Volume 94.9 fL (83.0-100.0); Monocytes # 0.5 K/mcL (0.0-1.3); Monocytes % 10.9 %; Neutrophils # 2.5 K/mcL (1.6-8.9); Platelet Count 162 K/mcL (140-400); Red Blood Count 2.97 M/mcL (3.82-4.97); Red Cell Distribution Width 12.9 % (11.5-14.5); Segmented Neutrophils % 57.8 %; White Blood Count 4.4 K/mcL (4.3-11.1)
[2019-12-16 11:55] LABS: Calcium 9.8 mg/dL (8.6-10.3)
[2019-12-16 15:36] VITALS: BP 128/70
[2019-12-16] MEDS ORDERED: FLU Vac QV 20-21 (6Month+)/PF 0.5 ML SYRINGE IM ONE (16:22)
[2019-12-16 17:10] LABS: Adenovirus Not Detected (Not Detect); Bordetella Pertussis Not Detected (Not Detect); Coronavirus 229E Not Detected (Not Detect); Coronavirus HKU1 Not Detected (Not Detect); Coronavirus NL63 Not Detected (Not Detect); Coronavirus OC43 Not Detected (Not Detect); Human Metapneumovirus Not Detected (Not Detect); Human Rhinovirus/Enterovirus Not Detected (Not Detect); Influenza A Subtype 2009 H1 Not Detected (Not Detect); Influenza B Not Detected (Not Detect); Parainfluenza Virus 1 Not Detected (Not Detect); Parainfluenza Virus 2 Not Detected (Not Detect); Parainfluenza Virus 3 Not Detected (Not Detect); Parainfluenza Virus 4 Not Detected (Not Detect); Respiratory Syncytial Virus Not Detected (Not Detect); SARS-CoV-2 Not Detected (Not Detect)
[2019-12-16 17:11] LABS: Chlamydophila pneumoniae Not Detected (Not Detect); Mycoplasma pneumoniae Not Detected (Not Detect)
== END 2019-12-16 18:11 | disposition other institution (70) | DRG 280 ==
LOC: EMEROOARM 11:58 → 3BNU 11:58 → SUATTDRO 15:44 → 3BNU 17:01 → SUATTDRO 12-11 13:07
PROVIDERS: ADMIT Internal Medicine; ATTEND Internal Medicine

== ENCOUNTER 2020-07-30 02:20 | Observation (INO) ==
[2020-07-30] MEDS ORDERED: Aspirin 81 MG TAB.CHEW PO ONE (02:28)
[2020-07-30 03:03] LABS: Basophils % 0.4 %; Eosinophils # 0.2 K/mcL (0.0-0.6); Hematocrit 25.2 % (35.3-44.9); Hemoglobin 8.4 g/dL (11.5-15.4); Immature Granulocytes % 0.4 % (0-4); Lymphocytes # 1.6 K/mcL (0.6-4.6); Lymphocytes % 32.3 %; Mean Corpuscular HGB Conc 33.3 g/dL (31.6-35.5); Mean Corpuscular Hemoglobin 31.6 pg (28.0-33.3); Mean Corpuscular Volume 94.7 fL (83.0-100.0); Mean Platelet Volume 12.6 fL (9.4-12.4); Monocytes # 0.3 K/mcL (0.0-1.3); Monocytes % 5.8 %; Neutrophils # 2.9 K/mcL (1.6-8.9); Platelet Count 163 K/mcL (140-400); Red Blood Count 2.66 M/mcL (3.82-4.97); Red Cell Distribution Width 12.5 % (11.5-14.5); Segmented Neutrophils % 58.1 %
[2020-07-30 03:25] LABS: Alanine Aminotransferase 5 Units/L (7-52); Albumin 3.3 g/dL (3.5-5.7); Albumin/Globulin Ratio 1.1 (1.1-2.2); Alkaline Phosphatase 58 Units/L (34-104); Aspartate Amino Transferase 10 Units/L (13-39); BUN/Creatinine Ratio 16 (6-26); Bilirubin,Direct 0.1 mg/dL (0.0-0.2); Bilirubin,Total 0.1 mg/dL (0.3-1.0); Blood Urea Nitrogen 41 mg/dL (8-23); Calcium 10.3 mg/dL (8.6-10.3); Carbon Dioxide 26 mEq/L (23-29); Chloride 97 mEq/L (98-107); Globulin 3.1 g/dL (2.4-3.5); Glucose 315 mg/dL (70-105); Lipase 49 Units/L (11-82); Osmolality,Calculated 296 (280-300); Potassium 3.7 mEq/L (3.5-5.1); Sodium 132 mEq/L (136-145); Total Protein 6.4 g/dL (6.4-8.9); Troponin I < 0.03 ng/mL (< 0.04); eGFR For African Americans 22 (> 60); eGFR For Non-African Americans 19 (> 60)
[2020-07-30 03:47] LABS: Prothrombin Time 11.5 Seconds (9.4-12.1)
[2020-07-30 03:50] LABS: Activated Partial Thrombo Time 25.6 Seconds (26.0-36.0)
[2020-07-30 04:49] LABS: Bacteria,Urine Few per hpf (None-Few); Bilirubin,Urine Negative (Negative); Blood,Urine Negative (Negative); Clarity,Urine Clear (Clear); Color,Urine Colorless (Yellow); Glucose,Urine (UA) 300 mg/dL (Normal); Ketones,Urine Negative (Negative); Leukocyte Esterase,Urine Negative (Negative); Mucus,Urine Few per lpf (None-Few); Nitrite,Urine Negative (Negative); Protein,Urine Trace mg/dL (Neg-Trace); RBC,Urine 0-3 per hpf (0-3); Specific Gravity,Urine 1.007 (1.010-1.025); Squamous Epithelial Cell,Urine Few per hpf (None-Few); Urobilinogen,Urine Normal (Normal); WBC,Urine 0-3 per hpf (0-3)
[2020-07-30] MEDS ORDERED: Perflutren Lipid Microsphere 1.3 ML in 0.9 % Sodium Chloride 8.7 ML IVP PRN (05:41)
[2020-07-30] MEDS ORDERED: Acetaminophen 325 MG TABLET PO PRN (05:43)
[2020-07-30] MEDS ORDERED: Naloxone 0.4 MG/ML INJ IVP PRN (05:43)
[2020-07-30] MEDS ORDERED: Ondansetron 4 MG/2 ML VIAL IVP PRN (05:43)
[2020-07-30] MEDS ORDERED: Dextrose Gel 15 GM/37.5 ML TUBE PO PRN ×2 (05:44)
[2020-07-30] MEDS ORDERED: D5% in Water 1,000 ML IVC PRN (05:44)
[2020-07-30] MEDS ORDERED: *HR* Dextrose 50 % in Water (Vial) 50 ML VIAL IVP PRN (05:44)
[2020-07-30] MEDS ORDERED: Aspirin Enteric Coated 81 MG Tablet PO SCH (05:45)
[2020-07-30] MEDS ORDERED: Regadenoson 0.4 MG/5 ML SYRINGE IVP ONE (06:44)
[2020-07-30] MEDS ORDERED: Cyanocobalamin (B-12) 1,000 MCG TABLET PO SCH (07:30)
[2020-07-30] MEDS: Famotidine 20 MG/2 ML VIAL IVP SCH ×2 (08:42→17:29)
[2020-07-30] MEDS: allopurinoL 100 MG TABLET PO SCH ×2 (08:43→20:12)
[2020-07-30] MEDS: Insulin LISPRO 300 UNITS/3 ML VIAL SUBQ SCH ×3 (08:44→17:48)
[2020-07-30] MEDS: Furosemide 40 MG TABLET PO SCH (08:45)
[2020-07-30] MEDS ORDERED: *HR* Heparin 5,000 UNIT/ML VIAL IVP ONE (14:14)
[2020-07-30] MEDS ORDERED: *HR* Heparin 5,000 UNIT/ML VIAL IVP PRN ×2 (14:14)
[2020-07-30] MEDS: Heparin 25,000UNIT/250ML 1/2NS 25,000 UNIT/250 ML IV.SOLN IVC SCH (17:25)
[2020-07-30] MEDS ORDERED: *HR* Heparin 5,000 UNIT/ML VIAL SQ SCH (18:00)
[2020-07-30] MEDS: carvediloL 6.25 MG TABLET PO SCH (20:12)
[2020-07-31] MEDS: Insulin LISPRO 300 UNITS/3 ML VIAL SUBQ SCH ×4 (00:42→17:33)
[2020-07-31 03:13] LABS: Hematocrit 25.5 % (35.3-44.9); Hemoglobin 8.7 g/dL (11.5-15.4); Mean Corpuscular HGB Conc 34.1 g/dL (31.6-35.5); Mean Corpuscular Hemoglobin 31.5 pg (28.0-33.3); Mean Corpuscular Volume 92.4 fL (83.0-100.0); Mean Platelet Volume 12.5 fL (9.4-12.4); Platelet Count 156 K/mcL (140-400); Red Blood Count 2.76 M/mcL (3.82-4.97); Red Cell Distribution Width 12.5 % (11.5-14.5); White Blood Count 5.4 K/mcL (4.3-11.1)
[2020-07-31 03:25] LABS: Calcium 9.8 mg/dL (8.6-10.3); Magnesium 1.9 mg/dL (1.6-2.6); Potassium 3.7 mEq/L (3.5-5.1); Troponin I 0.31 ng/mL (< 0.04)
[2020-07-31] MEDS: Famotidine 20 MG/2 ML VIAL IVP SCH (06:18)
[2020-07-31] MEDS: Furosemide 40 MG TABLET PO SCH (08:24)
[2020-07-31] MEDS: carvediloL 6.25 MG TABLET PO SCH (08:24)
[2020-07-31] MEDS: allopurinoL 100 MG TABLET PO SCH (08:24)
[2020-07-31] MEDS ORDERED: Isosorbide MONOnitrate (24 HR) 30 MG TAB.ER.24H PO SCH ×2 (09:00)
[2020-07-31] MEDS: Heparin 25,000UNIT/250ML 1/2NS 25,000 UNIT/250 ML IV.SOLN IVC SCH (15:04)
[2020-07-31 16:08] VITALS: BP 115/56
[2020-07-31] MEDS ORDERED: Ranolazine 500 MG TAB.ER.12H PO SCH (21:00)
[2020-08-01] MEDS ORDERED: Famotidine 20 MG/2 ML VIAL IVP SCH (09:00)
== END 2020-07-31 21:45 | disposition home or self-care (01) ==
LOC: EMEROOARM 02:20 → CDU 02:20 → SUATTDRO 05:30 → CDU 06:14 → 3BNU 13:38
PROVIDERS: ADMIT Internal Medicine; ATTEND Family Medicine

== ENCOUNTER 2020-09-28 17:09 | Inpatient (IN) ==
[2020-09-28] MEDS ORDERED: 0.9 % Sodium Chloride 500 ML IVC ONE (17:24)
[2020-09-28 18:15] LABS: Immature Granulocytes % 0.4 % (0-4); Red Cell Distribution Width 13.2 % (11.5-14.5)
[2020-09-28 18:17] LABS: Basophils % 0.4 %; Eosinophils # 0.1 K/mcL (0.0-0.6); Eosinophils % 0.9 %; Hemoglobin 7.3 g/dL (11.5-15.4); Lymphocytes # 1.3 K/mcL (0.6-4.6); Lymphocytes % 18.3 %; Mean Corpuscular HGB Conc 33.2 g/dL (31.6-35.5); Mean Corpuscular Hemoglobin 31.9 pg (28.0-33.3); Mean Corpuscular Volume 96.1 fL (83.0-100.0); Mean Platelet Volume 13.1 fL (9.4-12.4); Monocytes # 0.4 K/mcL (0.0-1.3); Monocytes % 6.3 %; Neutrophils # 5.2 K/mcL (1.6-8.9); Platelet Count 163 K/mcL (140-400); Red Blood Count 2.29 M/mcL (3.82-4.97); Segmented Neutrophils % 73.7 %
[2020-09-28 18:22] LABS: INR 1.1; Prothrombin Time 12.5 Seconds (9.4-12.1)
[2020-09-28 18:25] LABS: Activated Partial Thrombo Time 26.5 Seconds (26.0-36.0)
[2020-09-28 18:35] LABS: Calcium 9.1 mg/dL (8.6-10.3); Potassium 4.5 mEq/L (3.5-5.1)
[2020-09-28] MEDS ORDERED: Azithromycin 250 MG TABLET PO ONE (18:47)
[2020-09-28 18:50] LABS: Troponin I 0.59 ng/mL (< 0.04)
[2020-09-28] MEDS ORDERED: Aspirin 325 MG TABLET PO ONE (18:55)
[2020-09-28 19:56] LABS: Bilirubin,Urine Negative (Negative); Blood,Urine Negative (Negative); Clarity,Urine Clear (Clear); Color,Urine Yellow (Yellow); Glucose,Urine (UA) 50 mg/dL (Normal); Hyaline Casts,Urine Many per lpf (None Seen); Ketones,Urine Negative (Negative); Leukocyte Esterase,Urine Trace (Negative); Mucus,Urine Few per lpf (None-Few); Nitrite,Urine Negative (Negative); PH,Urine 5.5 pH Units (5.0-8.0); Protein,Urine 30 mg/dL (Neg-Trace); RBC,Urine 0-3 per hpf (0-3); Specific Gravity,Urine 1.016 (1.010-1.025); Squamous Epithelial Cell,Urine Few per hpf (None-Few); Urobilinogen,Urine Normal (Normal)
[2020-09-28] MEDS ORDERED: Naloxone 0.4 MG/ML INJ IVP PRN (21:14)
[2020-09-28] MEDS ORDERED: Ondansetron 4 MG/2 ML VIAL IVP PRN (21:14)
[2020-09-28] MEDS ORDERED: Acetaminophen 325 MG TABLET PO PRN (21:14)
[2020-09-28] MEDS ORDERED: Nitroglycerin 0.4 MG TAB.SUBL SL PRN (21:37)
[2020-09-28] MEDS: cefTRIAXone 1,000 MG in Water for inj. (sterile) 10 ML IVP SCH (22:28)
[2020-09-28] MEDS ORDERED: Perflutren Lipid Microsphere 1.3 ML in 0.9 % Sodium Chloride 8.7 ML IVP PRN (23:10)
[2020-09-28] MEDS ORDERED: *HR* Dextrose 50 % in Water (Vial) 50 ML VIAL IVP PRN (23:12)
[2020-09-28] MEDS ORDERED: Dextrose Gel 15 GM/37.5 ML TUBE PO PRN ×2 (23:12)
[2020-09-28] MEDS ORDERED: D5% in Water 1,000 ML IVC PRN (23:12)
[2020-09-28 23:34] LABS: Calcium 9.1 mg/dL (8.6-10.3); Potassium 4.2 mEq/L (3.5-5.1)
[2020-09-29] MEDS: Furosemide 40 MG/4 ML VIAL IVP SCH ×2 (00:52→07:30)
[2020-09-29] MEDS: Insulin DETEMIR 100 UNIT/ML X5UNITS SUBQ SCH ×2 (01:42→20:55)
[2020-09-29] MEDS: Insulin LISPRO 300 UNITS/3 ML VIAL SUBQ SCH ×5 (01:51→20:39)
[2020-09-29] MEDS: Pantoprazole 40 MG VIAL IVP SCH ×2 (06:16→18:40)
[2020-09-29 06:44] LABS: Basophils % 0.6 %; Eosinophils # 0.1 K/mcL (0.0-0.6); Eosinophils % 1.4 %; Hemoglobin 7.6 g/dL (11.5-15.4); Immature Granulocytes % 0.3 % (0-4); Lymphocytes # 1.6 K/mcL (0.6-4.6); Lymphocytes % 21.9 %; Mean Corpuscular Hemoglobin 31.4 pg (28.0-33.3); Mean Platelet Volume 12.9 fL (9.4-12.4); Monocytes # 0.5 K/mcL (0.0-1.3); Monocytes % 6.6 %; Neutrophils # 4.9 K/mcL (1.6-8.9); Platelet Count 177 K/mcL (140-400); Red Blood Count 2.42 M/mcL (3.82-4.97); Segmented Neutrophils % 69.2 %; White Blood Count 7.1 K/mcL (4.3-11.1)
[2020-09-29 06:50] LABS: INR 1.1; Prothrombin Time 12.5 Seconds (9.4-12.1)
[2020-09-29 07:02] LABS: Calcium 8.9 mg/dL (8.6-10.3); Potassium 4.2 mEq/L (3.5-5.1)
[2020-09-29 07:03] LABS: Chol/HDL Ratio 9.9 (0-4.9); Magnesium 1.7 mg/dL (1.6-2.6); Phosphorous 2.9 mg/dL (2.7-4.5)
[2020-09-29 07:09] LABS: % Iron Saturation 12 % (15-50); Iron 22 mcg/dL (50-170); Transferrin 133 mg/dL (203-362)
[2020-09-29 07:22] LABS: Ferritin 902 ng/mL (10-120)
[2020-09-29 07:26] LABS: Folate 3.3 ng/mL (3.0-16.0)
[2020-09-29] MEDS: Ranolazine 500 MG TAB.ER.12H PO SCH ×2 (07:29→20:54)
[2020-09-29 07:30] LABS: Vitamin B12 > 1500 pg/mL (250-1100)
[2020-09-29] MEDS: cefTRIAXone 1,000 MG in Water for inj. (sterile) 10 ML IVP SCH (07:30)
[2020-09-29] MEDS ORDERED: carvediloL 6.25 MG TABLET PO SCH ×4 (08:00→21:00)
[2020-09-29] MEDS ORDERED: Aspirin Enteric Coated 81 MG Tablet PO SCH (09:00)
[2020-09-29] MEDS ORDERED: Isosorbide MONOnitrate (24 HR) 30 MG TAB.ER.24H PO SCH (09:00)
[2020-09-29 10:35] LABS: Estimated Average Glucose 206 mg/dl; Hemoglobin A1C 8.8 %
[2020-09-29 11:50] LABS: Hematocrit 19.3 % (35.3-44.9); Hemoglobin 6.7 g/dL (11.5-15.4)
[2020-09-29] MEDS ORDERED: Ipratropium/Albuterol Neb 3 ML IH PRN (12:00)
[2020-09-29] MEDS ORDERED: 0.9 % Sodium Chloride 250 ML IVC SCH (14:45)
[2020-09-29 20:10] LABS: Hematocrit 24.7 % (35.3-44.9)
[2020-09-29 20:11] LABS: Hemoglobin 8.4 g/dL (11.5-15.4)
[2020-09-29] MEDS: Azithromycin 500 MG in 0.9 % Sodium Chloride 250 ML IVPB SCH (20:54)
[2020-09-30 05:08] LABS: Basophils % 0.4 %; Eosinophils # 0.2 K/mcL (0.0-0.6); Eosinophils % 2.3 %; Hematocrit 26.1 % (35.3-44.9); Immature Granulocytes % 0.3 % (0-4); Lymphocytes # 2.2 K/mcL (0.6-4.6); Lymphocytes % 27.7 %; Mean Corpuscular HGB Conc 34.5 g/dL (31.6-35.5); Mean Corpuscular Hemoglobin 31.7 pg (28.0-33.3); Mean Corpuscular Volume 91.9 fL (83.0-100.0); Monocytes # 0.5 K/mcL (0.0-1.3); Monocytes % 6.1 %; Neutrophils # 5.1 K/mcL (1.6-8.9); Platelet Count 186 K/mcL (140-400); Red Blood Count 2.84 M/mcL (3.82-4.97); Red Cell Distribution Width 13.5 % (11.5-14.5); Segmented Neutrophils % 63.2 %
[2020-09-30 05:31] LABS: Magnesium 1.7 mg/dL (1.6-2.6); Potassium 4.1 mEq/L (3.5-5.1)
[2020-09-30 05:41] LABS: Troponin I 0.56 ng/mL (< 0.04)
[2020-09-30] MEDS: Pantoprazole 40 MG VIAL IVP SCH ×2 (06:10→17:08)
[2020-09-30] MEDS: Insulin LISPRO 300 UNITS/3 ML VIAL SUBQ SCH ×4 (06:57→20:21)
[2020-09-30] MEDS: cefTRIAXone 1,000 MG in Water for inj. (sterile) 10 ML IVP SCH (08:39)
[2020-09-30] MEDS: Ranolazine 500 MG TAB.ER.12H PO SCH ×2 (08:40→20:05)
[2020-09-30] MEDS ORDERED: Metoprolol XL (24 HR) Succ 25 MG TAB.ER.24H PO SCH (09:00)
[2020-09-30] MEDS: Metoprolol XL (24 HR) Succ 25 MG TAB.ER.24H PO SCH (09:05)
[2020-09-30] MEDS: Azithromycin 500 MG in 0.9 % Sodium Chloride 250 ML IVPB SCH (20:05)
[2020-10-01] MEDS: Pantoprazole 40 MG VIAL IVP SCH (06:07)
[2020-10-01] MEDS: Insulin LISPRO 300 UNITS/3 ML VIAL SUBQ SCH ×4 (06:45→20:25)
[2020-10-01 07:06] LABS: Basophils % 0.3 %; Eosinophils # 0.1 K/mcL (0.0-0.6); Hematocrit 27.6 % (35.3-44.9); Hemoglobin 9.4 g/dL (11.5-15.4); Immature Granulocytes % 0.5 % (0-4); Lymphocytes # 1.6 K/mcL (0.6-4.6); Lymphocytes % 25.9 %; Mean Corpuscular HGB Conc 34.1 g/dL (31.6-35.5); Mean Corpuscular Volume 93.9 fL (83.0-100.0); Mean Platelet Volume 13.4 fL (9.4-12.4); Monocytes # 0.3 K/mcL (0.0-1.3); Monocytes % 4.9 %; Neutrophils # 4.2 K/mcL (1.6-8.9); Platelet Count 121 K/mcL (140-400); Red Blood Count 2.94 M/mcL (3.82-4.97); Red Cell Distribution Width 13.4 % (11.5-14.5); Segmented Neutrophils % 67.4 %; White Blood Count 6.2 K/mcL (4.3-11.1)
[2020-10-01 07:24] LABS: Magnesium 1.8 mg/dL (1.6-2.6); Potassium 4.6 mEq/L (3.5-5.1)
[2020-10-01] MEDS: cefTRIAXone 1,000 MG in Water for inj. (sterile) 10 ML IVP SCH (09:03)
[2020-10-01] MEDS: Ranolazine 500 MG TAB.ER.12H PO SCH ×2 (09:04→20:35)
[2020-10-01] MEDS: Metoprolol XL (24 HR) Succ 25 MG TAB.ER.24H PO SCH (09:08)
[2020-10-01] MEDS: Isosorbide MONOnitrate (24 HR) 30 MG TAB.ER.24H PO SCH (10:46)
[2020-10-01] MEDS: Furosemide 20 MG/2 ML VIAL IVP SCH (10:46)
[2020-10-01 10:48] LABS: Calcium 8.3 mg/dL (8.6-10.3)
[2020-10-01] MEDS: Azithromycin 250 MG TABLET PO SCH (20:35)
[2020-10-02 05:50] LABS: Basophils % 0.3 %; Hemoglobin 9.3 g/dL (11.5-15.4); Red Cell Distribution Width 13.3 % (11.5-14.5)
[2020-10-02 05:53] LABS: Eosinophils # 0.2 K/mcL (0.0-0.6); Eosinophils % 2.4 %; Hematocrit 27.4 % (35.3-44.9); Immature Granulocytes % 0.4 % (0-4); Immature Platelets 12.2 % (1.1-6.1); Lymphocytes # 2.4 K/mcL (0.6-4.6); Mean Corpuscular HGB Conc 33.9 g/dL (31.6-35.5); Mean Corpuscular Hemoglobin 31.2 pg (28.0-33.3); Mean Corpuscular Volume 91.9 fL (83.0-100.0); Mean Platelet Volume 13.1 fL (9.4-12.4); Monocytes # 0.6 K/mcL (0.0-1.3); Neutrophils # 4.6 K/mcL (1.6-8.9); Platelet Count 216 K/mcL (140-400); Red Blood Count 2.98 M/mcL (3.82-4.97); Segmented Neutrophils % 58.9 %; White Blood Count 7.8 K/mcL (4.3-11.1)
[2020-10-02 06:13] LABS: Calcium 8.7 mg/dL (8.6-10.3); Potassium 4.5 mEq/L (3.5-5.1)
[2020-10-02] MEDS: Insulin LISPRO 300 UNITS/3 ML VIAL SUBQ SCH ×4 (08:06→21:41)
[2020-10-02] MEDS: Isosorbide MONOnitrate (24 HR) 30 MG TAB.ER.24H PO SCH (08:20)
[2020-10-02] MEDS: Aspirin Enteric Coated 81 MG Tablet PO SCH (08:20)
[2020-10-02] MEDS: Metoprolol XL (24 HR) Succ 25 MG TAB.ER.24H PO SCH (08:20)
[2020-10-02] MEDS: Ranolazine 500 MG TAB.ER.12H PO SCH ×2 (08:22→21:44)
[2020-10-02] MEDS: Furosemide 20 MG/2 ML VIAL IVP SCH (08:23)
[2020-10-02] MEDS: cefTRIAXone 1,000 MG in Water for inj. (sterile) 10 ML IVP SCH (08:24)
[2020-10-02] MEDS: Azithromycin 250 MG TABLET PO SCH (21:44)
[2020-10-03] MEDS: Insulin LISPRO 300 UNITS/3 ML VIAL SUBQ SCH ×4 (07:42→21:04)
[2020-10-03] MEDS: Aspirin Enteric Coated 81 MG Tablet PO SCH (07:52)
[2020-10-03] MEDS: Metoprolol XL (24 HR) Succ 25 MG TAB.ER.24H PO SCH (07:53)
[2020-10-03] MEDS: Isosorbide MONOnitrate (24 HR) 30 MG TAB.ER.24H PO SCH (07:54)
[2020-10-03] MEDS: Furosemide 20 MG/2 ML VIAL IVP SCH (07:55)
[2020-10-03] MEDS: Ranolazine 500 MG TAB.ER.12H PO SCH ×2 (07:56→20:57)
[2020-10-03] MEDS: cefTRIAXone 1,000 MG in Water for inj. (sterile) 10 ML IVP SCH (07:56)
[2020-10-03 11:41] LABS: Immature Granulocytes % 0.4 % (0-4)
[2020-10-03 11:42] LABS: Basophils # 0.1 K/mcL (0.0-0.2); Basophils % 0.6 %; Eosinophils # 0.2 K/mcL (0.0-0.6); Eosinophils % 2.2 %; Hematocrit 28.6 % (35.3-44.9); Hemoglobin 9.7 g/dL (11.5-15.4); Immature Platelets 10.3 % (1.1-6.1); Lymphocytes # 2.2 K/mcL (0.6-4.6); Mean Corpuscular HGB Conc 33.9 g/dL (31.6-35.5); Mean Corpuscular Hemoglobin 31.5 pg (28.0-33.3); Mean Corpuscular Volume 92.9 fL (83.0-100.0); Mean Platelet Volume 13.1 fL (9.4-12.4); Monocytes # 0.5 K/mcL (0.0-1.3); Monocytes % 6.1 %; Neutrophils # 4.9 K/mcL (1.6-8.9); Platelet Count 211 K/mcL (140-400); Red Blood Count 3.08 M/mcL (3.82-4.97); Red Cell Distribution Width 13.3 % (11.5-14.5); Segmented Neutrophils % 62.7 %; White Blood Count 7.8 K/mcL (4.3-11.1)
[2020-10-03 11:59] LABS: Potassium 4.7 mEq/L (3.5-5.1)
[2020-10-04 06:10] LABS: Calcium 8.4 mg/dL (8.6-10.3); Potassium 4.7 mEq/L (3.5-5.1)
[2020-10-04 07:27] VITALS: BP 137/66; PULSE 76; TEMP 97.9; O2SAT 94
[2020-10-04] MEDS: Insulin LISPRO 300 UNITS/3 ML VIAL SUBQ SCH ×3 (07:45→16:24)
[2020-10-04] MEDS: Ranolazine 500 MG TAB.ER.12H PO SCH (09:32)
[2020-10-04] MEDS: Aspirin Enteric Coated 81 MG Tablet PO SCH (09:32)
[2020-10-04] MEDS: Furosemide 20 MG/2 ML VIAL IVP SCH ×2 (09:33→11:15)
[2020-10-04] MEDS: Isosorbide MONOnitrate (24 HR) 30 MG TAB.ER.24H PO SCH (09:33)
[2020-10-04] MEDS: Metoprolol XL (24 HR) Succ 25 MG TAB.ER.24H PO SCH (09:33)
[2020-10-04] MEDS: cefTRIAXone 1,000 MG in Water for inj. (sterile) 10 ML IVP SCH ×2 (09:35→10:01)
== END 2020-10-04 18:46 | disposition other institution (70) | DRG 291 ==
LOC: 3ANU 17:09 → EMEROOARM 17:09 → SUATTDRO 20:07 → 3ANU 20:45 → SUATTDRO 10-02 14:56
PROVIDERS: ADMIT Internal Medicine; ATTEND Hospitalist